=== PATIENT | male | born 1965 | race Caucasian/White ===

== ENCOUNTER 2016-07-26 18:44 | Emergency (ER) | payer OTHER ==
[~2016-07-26] VITALS: Ht 182.9 cm; Wt 95.5 kg
[~2016-07-26 18:44] MED LIST: LACT10SO27 PO; Lactulose PO; MAGN400T23 PO; MELA1TAB11 PO; NADO40TA PO; RIFA550T3 PO; SPIR25TA3 PO; TRAM50TA2 PO
[2016-07-26 18:49] VITALS: BP 150/88; PULSE 94; RESP 18; O2SAT 98
[2016-07-26 21:01] LABS: BASOPHILS % (AUTO) 0.7 % (0-3); EOSINOPHILS % (AUTO) 3.5 % (0-5); MONOCYTES % (AUTO) 14.6 % (4-12); Mean Corpuscular Hemoglobin 28.7 pg (27.0-35.0); NEUTROPHILS % (AUTO) 59.3 % (40-74); Platelet Count 80 bil/L (150-400)
--- NOTE | 2016-07-26 21:23 | ED.REPORT ---
HPI-General Illness Date of Service July 26, 2016 ED Provider: Miguel Schneider DO This is a very pleasant 50-year-old male who presents to have his ammonia levels checked. Evidently he has hepatitis C and cirrhosis. He is supposed be taking lactulose lately's been forgetting to take it. His friends seem to think that his behavior was a little erratic and this usually happens when his ammonia was elevated. As it were he was discharged from [facility] 2 weeks ago. He states that he took the lactulose regularly while in correction however he set a hard time remembering it. He did take it today he has had 3 bowel movements. He has not had a fever. He has not had any new trauma to his brain however he has to status posttraumatic brain injury. Nursing Notes Stated Complaint: CONFUSION Chief Complaint: General Complaint Nursing Notes Reviewed: Yes Allergies: Coded Allergies: acetaminophen (Verified Adverse Reaction, Unknown, 12/24/14) D/T LIVER FAILURE Scheduled ([Lactulose]) 20 GM/30 ML SYRUP 30 GM PO TID Lactulose (Lactulose) 10 Gm/15 Ml Solution 10 GM PO TID Magnesium Oxide (Mag-Oxide) 400 Mg Tablet 400 MG PO DAILY Melatonin/Pyridoxine (Melatonin 3 mg Tablet) 1 Each Tablet 1 EACH PO HS Nadolol (Nadolol) 40 Mg Tablet 40 MG PO DAILY Rifaximin (Xifaxan) 550 Mg Tablet 550 MG PO BID Spironolactone (Spironolactone) 25 Mg Tablet 25 MG PO BID Spironolactone (Spironolactone) 25 Mg Tablet 25 MG PO DAILY Scheduled PRN Tramadol (Tramadol) 50 Mg Tablet 50 MG PO TID PRN PRN For Pain General Time Seen by MD: 21:22 Chief Complaint Other (confusion) Hx Obtained From: Patient Onset Occurred: Onset unknown Context of Onset: Other (hasn't been taking medications) Recent Healthcare: No recent doctor visit, No recent hospitalization Past Medical History Past Medical History Cirrhosis of liver due hepatitis C History of trauma s/p fall off roof with multiple rib and clavicle fractures, pneumothorax with respiratory failure requiring intubation, complicated by MRSA pneumonia History of pancreatitis. History of cocaine and heroin use, in remission. HIV was negative on 10/23/13. MRSA nasal carriage on 09/08/13. 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, Meth Other Social History: Good social support, Homeless Ambulatory Status Independent Review of Systems Full Review of Systems Constitutional: Denies: Chills, Fatigue Eyes: Denies: Blurred left, Blurred right Ears / Nose / Throat: Denies: Ear drainage bilateral, Ear drainage right Respiratory: Denies: Dyspnea on exertion, Non-productive cough, Shortness of breath Cardiovascular: Denies: Chest pain GI: Denies: Abdominal pain Male: Denies Dysuria Musculoskeletal: Denies: Back pain Endocrine: Denies: Cold intolerance Psychiatric: Reports: Change mental status, Confusion, Denies: Suicidal ideation Complete sys rev & neg: except as marked. Physical Exam Vital Signs Vital Signs Date Time Temp Pulse Resp B/P Pulse Ox O2 Delivery O2 Flow Rate FiO2 07/26/16 22:46 36.8 86 16 134/84 97 Room Air 07/26/16 18:49 37.2 94 18 150/88 98 Room Air Initial VS: Reviewed General/Constitutional: Well-developed, Well-nourished Head / Eyes: Atraumatic ENT: Mucous membranes moist Neck: Supple Respiratory: Breath sounds normal Cardiovascular: Regular rate & rhythm Abdomen / GI: Soft, Non-tender Back: No CVA tenderness Lymphatic: No lymphadenopathy Extremities: Vascular intact, Neuro intact General/Constitutional: Awake, Alert, No acute distress Head / Eyes: Atraumatic, Normocephalic, PERRL, EOMI Respiratory / Chest: Atraumatic, Breath sounds NL, Breath sounds = bilat, No respiratory distress Cardiovascular: Heart rate NL, Regular rhythm, Heart sounds NL Abdomen: Atraumatic, Soft, Non-tender Upper Extremities Upper Extremity / MS: Atraumatic, Full range of motion Lower Extremity / Pelvis / MS: Atraumatic, Full range of motion Skin: Atraumatic, Color NL, No rash, Warm, Dry Neurologic: Oriented X3, Speech NL, No motor deficits, No sensory deficits, CN II - XII intact, Cerebellar NL, Memory NL, Gait NL (he is awake alert oriented 4. His speech is rapid and articulate. I find no signs of psychosis or altered mental status.) Psychiatric: Affect NL, Mood NL, Not suicidal pleasant and responsive, does not seem confused Interpretation & Diagnostics Lab Results Interpretation Result Diagram: 07/26/16203907/26/162039 Test 07/26/16 20:40 07/26/16 22:10 White Blood Count 5.8th/mm3 (3.8-10.1) Red Blood Count 4.22mil/mm3 (4.40-5.80) Hemoglobin 12.1g/dL (13.8-17.2) Hematocrit 36.7% (41.0-50.0) Mean Corpuscular Volume 87.0fL (81-100) Mean Corpuscular Hemoglobin 28.7pg (27.0-35.0) Mean Corpuscular Hemoglobin Concent 33.0% (32.0-37.0) Red Cell Distribution Width 18.0% (12.3-15.4) Platelet Count 80bil/L (150-400) Neutrophils (%) (Auto) 59.3% (40-74) Lymphocytes (%) (Auto) 21.7% (14-46) Monocytes (%) (Auto) 14.6% (4-12) Eosinophils (%) (Auto) 3.5% (0-5) Basophils (%) (Auto) 0.7% (0-3) Sodium Level 142mEq/L (134-144) Potassium Level 3.8mEq/L (3.5-5.2) Chloride Level 109mEq/L (97-108) Carbon Dioxide Level 21mmol/L (18-29) Blood Urea Nitrogen 13mg/dL (6-24) Creatinine 0.71mg/dL (0.76-1.27) Estimat Glomerular Filtration Rate 125mL/min (>59) Glucose Level 113mg/dL (60-99) Calcium Level 8.5mg/dL (8.5-10.1) Magnesium Level 2.0mg/dL (1.6-2.6) Total Bilirubin 3.2mg/dL (0.0-1.2) Aspartate Amino Transf (AST/SGOT) 48U/L (0-50) Alanine Aminotransferase (ALT/SGPT) 28U/L (0-44) Alkaline Phosphatase 78U/L (25-150) Total Protein 6.2g/dL (6.4-8.4) Albumin 3.1g/dL (3.4-5.0) Lipase 58U/L (13-60) Ammonia 116ug/dL (18-53) CT Head Interpretation IMPRESSION: No acute intracranial hemorrhage or CT signs of acute territorial infarction. Patchy white matter hypodensities may relate to chronic small vessel ischemic changes but these are advanced for patient age, query long-standing hypertension or diabetes. at 2249 Study: Head CT no contrast Interpretation / Wet Read by: Interpret - Radiologist Re-Eval/Medical Decision Med Decision/Clinical Course I think the Ezekiel looks good. We had a very nice conversation and I find no evidence for altered mentation. I think the lactulose has been taking is helping. His ammonia is elevated. He is planning to take the lactulose 4 times daily. He will follow-up levels on . He is staying with friends and they will help him take his lactulose as well. CT scan of his brain was reassuring. Remainder of laboratory work was reassuring. Time of Eval: 22:04 Re-Evaluation/Progress Note: Gathered more information and further examination. Time of Eval: 01:13 Re-Evaluation/Progress Note: Discussed plan for follow up and discharge. The patient understands and agrees to the plan for discharge. All questions were addressed. Counseled Regarding: Diagnosis, Lab results, Need for follow-up, When/why to return to ED Discharge & Departure Primary Impression: Hepatic encephalopathy Disposition: Home Discharge Condition All VS Reviewed: Yes Condition: Stable Patient Instructions: Liver Disease Diet (DC) Additional Instructions: Your ammonia level was 117. This is most likely why you feel confused. You need to take the Lactulose as instructed. Your brain scan did not show evidence of an acute stroke. Laboratory work was otherwise reassuring. I would like you to call the [facility] clinic first thing in the morning to set up a follow-up. Do not drive or operate machinery until cleared by [facility]. You need to have your ammonia levels re-checked next week. If you come back to the emergency department on before 10pm, we can get a social media developer for you to talk to. Return if any problems or any new or worsening symptoms. Referrals: [facility], [facility] (PCP) Chaz Santiago MD Scribe Attestation Portions of this note were transcribed by Ally Charlton. I, Dr. Schneider personally performed the history, physical exam and medical decision-making; I reviewed and confirmed the accuracy of the information in the transcribed note. Signed by: Tomi Dickerson, 07/26/16 and 2140 copies to: [facility]; Chaz Santiago MD, Todd P DO July 26, 2016 21:22 Sofia Charlton July 26, 2016 21:34
[2016-07-26 22:13] VITALS: BP 176/129; PULSE 68; RESP 14; O2SAT 93
[2016-07-26 22:46] VITALS: BP 134/84; PULSE 86; RESP 16; O2SAT 97
[2016-07-26] MEDS ORDERED: Lactulose 20 Gm/30 mL 30 mL Syrup PO ONE (22:55)
--- NOTE | 2016-07-27 10:25 | DRSVH ---
PROCEDURE: CT BRAIN WITHOUT CONTRAST ([id number]) INDICATIONS: altered mental status TECHNIQUE: Noncontrast 4.5 mm thick angled axial sections acquired from the foramen magnum to the vertex, with c oronal reformats. COMPARISON: [facility], CT, BRAIN W/O CONTRAST, 10/02/2013, 15:10. FINDINGS: Image quality: Excellent. CSF spaces: Basal cisterns are patent. No extra-axial fluid collections. Ventricles are normal in size and shape. Brain: No midline shift. No intracranial masses or hemorrhage. Ornelas-white matter interface is norm al. There patchy areas of hypoattenuation within the periventricular and subcortical white matter. Skull and face: Calvarium and visualized facial bones are intact, without suspicious lesions. Sinuses: Visualized sinuses and mastoids are clear. IMPRESSION: 1. No acute intracranial process. 2. Patchy periventricular and subcortical white matter hypoattenuation. While these could be related to chronic microvascular ischemia, given the patient's stated age, other etiologies such as vasculiti s and demyelinating disease should be considered. Dictated by: Marilu Stanton M.D. on 07/27/2016 at 9:17 Approved by: Marilu Stanton M.D. on 07/27/2016 at 10:22
== END 2016-07-27 01:25 | disposition home or self-care (01) ==
LOC: SED 18:44
DX: K72.90 Hepatic failure, unspecified without coma (principal); K74.60 Unspecified cirrhosis of liver; B19.20 Unspecified viral hepatitis C without hepatic coma; Z87.820 Personal history of traumatic brain injury; Z86.14 Personal history of Methicillin resistant Staphylococcus aureus infection; Z87.891 Personal history of nicotine dependence; Z59.0 Homelessness; Z88.6 Allergy status to analgesic agent

== ENCOUNTER 2016-09-10 11:10 | Emergency (ER) | payer OTHER ==
[~2016-09-10] VITALS: Ht 182.9 cm; Wt 90.9 kg
[2016-09-10 11:12] VITALS: BP 116/72; PULSE 85; RESP 16; O2SAT 97
--- NOTE | 2016-09-10 11:39 | ED.REPORT ---
HPI-General Illness Date of Service Sep 10, 2016 ED Provider: Eliseo Sethi MD Pt is a 50 year old male with a hx of alcoholic and Hep C cirrhosis and traumatic brain injury presenting to the ED after multiple falls complaining of bilateral pain and swelling in his bilateral lower extremities onset 4 days ago. He also complains of LE weakness, double vision, drainage from both ears ( for 1 month), chronic SOB, and a cough (1 month). Denies head trauma, dizziness , headache, numbness, LOC, chest pain, nausea, vomiting, trauma, abdominal pain , bloody stools, incontinence, or any pain. He reports that it feels like his legs give out and he loses his balance so he falls. He has had LE swelling in the past when he was hospitalized after he fell off a roof, but denies any history of leg swelling otherwise. Nursing Notes Stated Complaint: SWOLLEN LEGS Chief Complaint: General Complaint Nursing Notes Reviewed: Yes Allergies: Coded Allergies: acetaminophen (Verified Adverse Reaction, Unknown, 09/10/16) D/T LIVER FAILURE Scheduled Clindamycin (Clindamycin) 300 Mg Capsule 300 MG PO QID Lactulose (Lactulose) 10 Gm/15 Ml Solution 10 GM PO TID Lactulose (Lactulose) 20 Gm/30 Ml Solution 20 GM PO QID Magnesium Oxide (Mag-Oxide) 400 Mg Tablet 400 MG PO DAILY Melatonin/Pyridoxine (Melatonin 3 mg Tablet) 1 Each Tablet 1 EACH PO HS Nadolol (Nadolol) 40 Mg Tablet 40 MG PO DAILY Rifaximin (Xifaxan) 550 Mg Tablet 550 MG PO BID General Time Seen by MD: 11:17 Chief Complaint Other (LE swelling) Hx Obtained From: Patient Arrived By: Walk-in Sudden in Onset?: No Onset Occurred: 4 days ago Symptom Duration: Since onset Severity: Current: No pain currently Severity: Maximum: No pain Recent Healthcare: No recent doctor visit, No recent hospitalization Similar Sx Previous: No Past Medical History Past Medical History 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 History of cocaine and heroin use, in remission. HIV was negative on 10/23/13. MRSA nasal carriage on 09/08/13. Reports: GERD Past Surgical History Left hip and right wrist fracture repairs Smoking History Current Every Day Smoker Social History Alcohol Use: In recovery Drug Use: IV drugs, Meth Other Social History: Good social support, Homeless Ambulatory Status Independent Review of Systems Full Review of Systems Constitutional: Denies: Fever Eyes: Reports: Blurred bilateral (Double vision) Ears / Nose / Throat: Reports: Ear drainage bilateral Respiratory: Reports: Non-productive cough, Shortness of breath Cardiovascular: Denies: Chest pain GI: Denies: Abdominal pain, Bloody/tarry stool, Nausea, Vomiting Male: Denies Incontinence Musculoskeletal: Reports: Extremity pain, Extremity swelling Neurologic: Reports: Weakness, Denies: Change LOC, Dizziness, Headache, Numbness Complete sys rev & neg: except as marked. Physical Exam Vital Signs Vital Signs Date Time Temp Pulse Resp B/P Pulse Ox O2 Delivery O2 Flow Rate FiO2 09/10/16 16:07 80 121/68 09/10/16 11:12 37.3 85 16 116/72 97 Room Air Initial VS: Reviewed General/Constitutional: Well-developed, Well-nourished Head / Eyes: Atraumatic, Normocephalic, PERRL Neck: Supple, Non-tender, Full range of motion Respiratory: Breath sounds normal, Clear to auscultation, No respiratory distress Cardiovascular: Regular rate & rhythm, Heart sounds normal, Intact distal pulses Abdomen / GI: Soft, Non-tender, No guarding, No rebound, No distention Skin: Warm, Dry, No cyanosis Neurologic: Alert, Oriented, Nonfocal Psychiatric: Mood/affect normal, Behavior normal, Normal thought content ENT: Atraumatic, Airway patent, Mucous membranes moist, Tympanic membs NL, Ext aud canal NL Lower Extremity / Pelvis / MS: Atraumatic, Neurologic intact, Vascular intact Pitting edema left worse than right up to calf. Mild cellulitis and erythema left leg. Rectum / Perineum: Atraumatic, No gross blood Guaiac negative. Interpretation & Diagnostics Lab Results Interpretation Result Diagram: 09/10/16 1220 09/10/16 1220 Test 09/10/16 12:20 White Blood Count 3.7th/mm3 (3.8-10.1) Red Blood Count 3.18mil/mm3 (4.40-5.80) Hemoglobin 9.2g/dL (13.8-17.2) Hematocrit 27.5% (41.0-50.0) Mean Corpuscular Volume 86.5fL (81-100) Mean Corpuscular Hemoglobin 28.9pg (27.0-35.0) Mean Corpuscular Hemoglobin Concent 33.5% (32.0-37.0) Red Cell Distribution Width 22.5% (12.3-15.4) Platelet Count 35bil/L (150-400) Neutrophils (%) (Auto) 77% (40-74) Lymphocytes (%) (Auto) 10% (14-46) Monocytes (%) (Auto) 9% (4-12) Eosinophils (%) (Auto) 0% (0-5) Basophils (%) (Auto) 0% (0-3) Band Neutrophils % 4% (1-5) Sodium Level 127mEq/L (134-144) Potassium Level 3.7mEq/L (3.5-5.2) Chloride Level 97mEq/L (97-108) Carbon Dioxide Level 19mmol/L (18-29) Blood Urea Nitrogen 21mg/dL (6-24) Creatinine 0.95mg/dL (0.76-1.27) Estimat Glomerular Filtration Rate 90mL/min (>59) Glucose Level 122mg/dL (60-99) Calcium Level 7.3mg/dL (8.5-10.1) Total Bilirubin 2.2mg/dL (0.0-1.2) Aspartate Amino Transf (AST/SGOT) 72U/L (0-50) Alanine Aminotransferase (ALT/SGPT) 45U/L (0-44) Alkaline Phosphatase 55U/L (25-150) Pro-B-Type Natriuretic Peptide 1480pg/mL (0-121) Total Protein 4.6g/dL (6.4-8.4) Albumin 2.1g/dL (3.4-5.0) Hold Zimmer Top Tube Received (Received) Re-Eval/Medical Decision Med Decision/Clinical Course 50-year-old male history of cirrhosis, hep C presenting with left lower extremity swelling. It is mildly erythematous. Vital signs are stable. His platelets are low but is not actively bleeding. His sodium is mildly low. He does have a left leg cellulitis. Ultrasound shows no DVT. His vital signs are stable. Patient does not want to stay in the hospital. Therefore he will be discharged home with oral antibiotics and return precautions if any new or worsening redness, fevers, nausea vomiting, bleeding, headaches, lethargy, visual changes, seizures, any other new or worsening symptoms. Time of Eval: 11:48 Patient Status: Condition improved Re-Evaluation/Progress Note: Discussed PMHX and performed physical exam. Time of Eval: 14:54 Patient Status: Condition improved Re-Evaluation/Progress Note: Discussed plan to wait for ultrasound. Also discussed plan for discharge if ultrasound is negative. Performed rectal exam. Counseled Regarding: Diagnosis, Lab results, Need for follow-up, When/why to return to ED Discharge & Departure Primary Impression: Cellulitis Site of cellulitis: other site Qualified Code: L03.818 - Cellulitis of other sites Additional Impressions: Hyponatremia Thrombocytopenia Disposition: Home Discharge Condition All VS Reviewed: Yes Condition: Improved Patient Instructions: Cellulitis (ED) Additional Instructions: No dangerous cause was identified for your leg pain. Your ultrasound today did not show signs of a blood clot. Take the antibiotics as prescribed for your cellulitis on your legs. Follow up with your primary care physician in 2 days. Return to the emergency room if you develop any new or worsening symptoms such as increased redness or swelling, nausea, vomiting, headache, weakness, or seizures. Referrals: [facility] (PCP) Tomi Attestation Portions of this note were transcribed by Louise Angeles. I, Dr. Sethi personally performed the history, physical exam and medical decision-making; I reviewed and confirmed the accuracy of the information in the transcribed note. Signed by: Tomi Hodge, 09/10/2016 at 1500. copies to: [facility] Eliseo Sethi MD Sep 10, 2016 11:39 LOUISE ANGELES Sep 10, 2016 11:45
[2016-09-10 12:40] LABS: EOSINOPHILS % (AUTO) 0 % (0-5); Mean Corpuscular Hemoglobin 28.9 pg (27.0-35.0); Mean Corpuscular Volume 86.5 fL (81-100)
[2016-09-10 13:02] LABS: Platelet Count 35 bil/L (150-400)
[2016-09-10 13:03] LABS: BASOPHILS % (AUTO) 0 % (0-3); MONOCYTES % (AUTO) 9 % (4-12); NEUTROPHILS % (AUTO) 77 % (40-74)
[2016-09-10] MEDS ORDERED: CLIN-78 PO (14:16)
[2016-09-10] MEDS ORDERED: LACT10SO60 PO (15:55)
[2016-09-10 16:07] VITALS: BP 121/68; PULSE 80
--- NOTE | 2016-09-10 18:54 | DRSVH ---
PROCEDURE: US VEINOUS LEG DUPLEX UNILATERAL, LEFT INDICATIONS: LLE swelling r/o dvt TECHNIQUE: Real-time imaging, as well as color and pulse Doppler interrogation, were performed of the lower extr emity deep veins from the inguinal ligament to the popliteal fossa. COMPARISON: None. FINDINGS: The deep veins are normally compressible, and free of intraluminal thrombus. Color and pu lse Doppler demonstrate normal phasic intraluminal flow. There is normal augmentation response to di stal compression maneuver. IMPRESSION: 1. No evidence of deep venous thrombosis in the left lower extremity. Dictated by: Melvin Whitmore M.D. on 09/10/2016 at 18:52 Approved by: Melvin Whitmore M.D. on 09/10/2016 at 18:52
== END 2016-09-10 16:05 | disposition home or self-care (01) ==
LOC: SED 11:10
DX: L03.116 Cellulitis of left lower limb (principal); L03.115 Cellulitis of right lower limb; W13.2XXA Fall from, out of or through roof, initial encounter; Y93.89 Activity, other specified; Y92.89 Other specified places as the place of occurrence of the external cause; Y99.8 Other external cause status; D69.6 Thrombocytopenia, unspecified; E87.1 Hypo-osmolality and hyponatremia; K21.9 Gastro-esophageal reflux disease without esophagitis; F17.200 Nicotine dependence, unspecified, uncomplicated; Z59.0 Homelessness; Z88.8 Allergy status to other drugs, medicaments and biological substances

== ENCOUNTER 2016-10-11 00:14 | Inpatient (IN) | payer OTHER ==
[2016-10-11] VITALS (9 sets, daily range): BP systolic 132–158; BP diastolic 81–97; PULSE 61–88; RESP 14–18; O2SAT 97–99
[~2016-10-11] VITALS: Ht 182.9 cm; Wt 83.9 kg
[~2016-10-11 00:14] MED LIST changes: +CLIN-78 PO; +LACT10SO60 PO; -Lactulose PO; -SPIR25TA3 PO; -TRAM50TA2 PO
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
[2016-10-11 00:53] LABS: APPEARANCE,URINE CLEAR (CLEAR,HAZY); COLOR,URINE DARK YELLOW (YELLOW); OCCULT BLOOD,URINE NEGATIVE (NEGATIVE); PH,URINE 6.5 (5.0-8.0); UROBILINOGEN,URINE >8.0 mg/dL (NORMAL)
[2016-10-11 00:54] LABS: ICTOTEST,URINE POSITIVE (Negative)
[2016-10-11 01:10] LABS: BASOPHILS % (AUTO) 0.7 % (0-3); EOSINOPHILS % (AUTO) 5.8 % (0-5); Mean Corpuscular Hemoglobin 28.3 pg (27.0-35.0); Mean Corpuscular Volume 85.3 fL (81-100); NEUTROPHILS % (AUTO) 61.4 % (40-74); Platelet Count 71 bil/L (150-400)
[2016-10-11 01:39] LABS: Magnesium 1.9 mg/dL (1.6-2.6)
[2016-10-11] MEDS ORDERED: Lactulose 20 Gm/30 mL 30 mL Syrup PO ONE (02:45)
[2016-10-11] MEDS ORDERED: Lactated Ringer's 1,000 ML IV SCH (03:09)
[2016-10-11] MEDS ORDERED: Polyethylene Glycol (PEG) 17 Gm Powder PO PRN (03:30)
[2016-10-11] MEDS: Lactulose 20 Gm/30 mL 30 mL Syrup PO SCH ×5 (03:30→20:19)
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
--- NOTE | 2016-10-11 04:57 | NUR ---
ADMIT Patient presents to the floor still quite sedated, slurring his words, incoherent. He is able to follow directions and cooperative. Patient asked several times if he "hurt someone" and apologizes. Patient is too sedated at this time to take anything by mouth. Will wait and perform Nurse swallow eval and provide lactulose if appropriate. Patient is sleeping currently. Bed alarm on for safety.
[2016-10-11 07:00] LABS: INR 1.6 ratio
[2016-10-11] MEDS ORDERED: OMEP20CA11 PO (08:05)
[2016-10-11] MEDS ORDERED: PROP10TA8 PO (08:05)
--- NOTE | 2016-10-11 08:55 | DRSVH ---
PROCEDURE: CT BRAIN WITHOUT CONTRAST ([id number]) INDICATIONS: altered ms TECHNIQUE: Noncontrast 4.5 mm thick angled axial sections acquired from the foramen magnum to the vertex, with c oronal reformats. COMPARISON: [facility], CT, CT BRAIN WO CON, 07/26/2016, 22:40. FINDINGS: Image quality: Good CSF spaces: Basal cisterns are patent. No extra-axial fluid collections. Ventricles are normal in size and shape. Brain: No midline shift. No intracranial masses or hemorrhage. There patchy areas of decreased atte nuation in the periventricular and subcortical white matter as before. Ornelas-white matter interface is normal except for possible subtle change in the left occipital region. This is not definite and may be artifact or just accentuated from a slight difference in angle of sulci and gyri that are volume a veraged. Skull and face: Calvarium and visualized facial bones are intact, without suspicious lesions. Sinuses: Visualized sinuses and mastoids are clear. IMPRESSION: Question of increasing ischemic change ornelas-white matter interface in the left occipital lobe versus artifact or volume averaging of sulci and gyri a slightly different level than the preced ing scan. No evidence for bleed or acute change otherwise. Patchy white matter changes and nonspecific pattern consistent with microvascular ischemic change, re latively prominent for 50-year-old. Small vessel disease would suggest hypertensive disease most comm only or diabetes but couldn't good other vasculitis. Dictated by: Umang Espinoza M.D. on 10/11/2016 at 8:43 this report corresponds to the findings of dashawn cook preliminary NSR report. Approved by: Umang Espinoza M.D. on 10/11/2016 at 8:53
--- NOTE | 2016-10-11 10:52 | DRSVH ---
PROCEDURE: X-RAY CHEST ONE VIEW, PORTABLE ([id number]) INDICATIONS: altered ms TECHNIQUE: One view of the chest was acquired. COMPARISON: [facility], , CHEST 1VW (PORTABLE), 09/08/2013, 16:00. [facility], CR, CHEST 1VW (PORTABLE), 09/25/2013, 17:49. FINDINGS: Surgical changes and devices: None. Lungs and pleura: No pleural effusions or pneumothorax. Lungs are clear, and interstitium is promin ent. Mediastinum: Mediastinal contours appear normal. Heart size is normal. Bones and chest wall: No suspicious bony lesions. Overlying soft tissues appear unremarkable. Unun ited left clavicular shaft fracture present. IMPRESSION: Interstitial prominence similar to prior examination. No definite acute cardiopulmonary process. Dictated by: Natalio Da Silva Richard Interpreted: Umang Espinoza MD on 10/11/2016 at 8:49 Approved by: Umang Espinoza M.D. on 10/11/2016 at 10:50
--- NOTE | 2016-10-11 13:16 | NUR ---
NUTRITION ASSESSMENT: ASSESSMENT: 50 YO Male admitted with altered mental status and hepatic encephalopathy. ST eval is pending. Per RN momo, pt diet was advanced to dysphagia [facility]. No po yet reported. PMHx: Hep C Cirrhosis, pancreatitis, cocaine/heroine use, Traumatic brain injury, ETOH abuse, HTN. MEDS: Reviewed. Lactulose ANTHROPOMETRICS: 81.9 kg. Admit wt: 79.4 kg. LABS: Reviewed. Cr .54, Ca 8.0, Ammonia 151, Alb 2.8. GI: No BM reported yet. DIET: Dysphagia Mechanical. No po reported yet, ST eval pending. ESTIMATED NEEDS: 5030-3244 kcals (30-35 kcal/kg BW), 100-125 g pro (1.2-1.5 g/kg BW) NUTRITION DIAGNOSIS: (1) Increased nutrient needs related to increased demand for nutrients as evidenced by h/o cirrhosis. NUTRITION INTERVENTION: (1) Continue current diet as ordered. MONITOR/EVALUATE: PO intake, diet advancement / tolerance, labs, ST eval, nutrition status. Follow per moderate nutrition risk guidelines.
--- NOTE | 2016-10-11 13:43 | DRSVH ---
PROCEDURE: X-RAY RIGHT HAND, TWO VIEWS ([id number]) INDICATIONS: possible trauma, unable to squeeze TECHNIQUE: 2 views of the hand(s) acquired. COMPARISON: [facility], CR, HAND MIN 3VW (RT), 01/20/2012, 20:14. FINDINGS: Bones: No fractures or dislocations. Healed fracture deformity of the fourth and fifth metacarpal h kareem. Multilevel joint narrowing with periarticular osteophyte formation. Carpal bones are normally aligned. As on all films there is a nonunion of a navicular waist fracture. No suspicious bony lesi ons. Soft tissues: No suspicious soft tissue calcifications. IMPRESSION: No displaced acute fracture seen. 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 There degenerative changes in the radiocarpal joint and interphalangeal joints. If t here is continued pain, followup exam or additional imaging such as MRI or CT could be performed for further assessment. Dictated by: Natalio Da Silva [facility] Interpreted: Umang Espinoza MD on 10/11/2016 at 12:55 Approved by: Umang Espinoza M.D. on 10/11/2016 at 13:41
--- NOTE | 2016-10-11 15:23 | DRSVH ---
PROCEDURE: US ABDOMEN INDICATIONS: cirrhosis abd pain previous ascities TECHNIQUE: Real-time scanning was performed of the abdominal and retroperitoneal organs, with image documentatio n. COMPARISON: US, ABDOMEN SONOGRAM LIMITED, 02/13/2009, 13:13. FINDINGS: Liver length: 12.34 cm Gallbladder Wall Thickness: 2.60 mm Spleen length: 15.93 cm Right kidney length: 10.16 cm Left kidney length: 10.54 cm Aorta(Proximal): 1.79 cm Aorta(Mid): 1.81 cm Aorta(Distal): 1.81 cm RCIA: 8.20 mm LCIA: 9.70 mm Liver: Liver is diffusely coarse and heterogeneous in echotexture. No discrete focal hepatic abnorma lity seen. Gallbladder: Gallstone present within the gallbladder neck measuring roughly 1.3 cm. No gallbladder wall thickening. Biliary ducts: Intrahepatic bile ducts are non-dilated. Extrahepatic bile duct caliber is normal. Normal is 6-7 mm or less in diameter, or 10 mm or less post-cholecystectomy. Pancreas: Visualized portions of the pancreas are sonographically normal. Spleen: Spleen is enlarged in size and homogeneous in echotexture. Kidneys: Kidneys are normal in size and echotexture. No hydronephrosis or nephrolithiasis. No brandy d masses. Aorta: Visualized aorta is normal in caliber at less than 3 cm. Iliacs: Proximal common iliac arteries are normal in caliber at less than 2.5 cm. IVC: Intrahepatic inferior vena cava is patent. Miscellaneous: No free abdominal fluid. IMPRESSION: 1. Coarse and heterogeneous appearance of the hepatic parenchyma in this patient with history of hepa tic cirrhosis. No discrete focal hepatic abnormality seen. 2. Cholelithiasis. 3. Sonographic splenomegaly. Dictated by: Natalio Da Silva RRA Interpreted: Greta Fair MD on 10/11/2016 at 14:34 Approved by: Greta Fair MD, PhD on 10/11/2016 at 15:20
[2016-10-11 15:31] LABS: Bilirubin, Direct 0.5 mg/dL (0.0-0.3)
--- NOTE | 2016-10-11 16:15 | NUR ---
Evaluation completed. Please go to "Notes" then click on "Assessments and Notes" (bottom left corner of screen). Then select appropriate discipline tab on top of screen.
--- NOTE | 2016-10-11 17:18 | NUR ---
Social Work-initial assessment: Data:See initial assessment. Pt ia a 50 y/o female who was admitted on 10/11/16 for AMS per H&P. pt's insurance is [employer] and PCP is Marcial. BONNIE met with pt at bedside, BONNIE role explained. Pt is alert and oriented x3. Pt resides at home with roommates where he remains independent with basic ADLS. Pt rides his bike for transport and does not drive. Pt has no HH or SNF history. Pt has no custodial care insurance or VA benefits. SW discussed DPOA/ advanced directive, pt declines any information. Pt requesting assistance for housing resources. BONNIE recommended pt go to community [facility] to discuss resources. Pt has questions about Assisted living,etc. SW explained that with state insurance [facility] could be looked at, but the state would take the majority of pt's money, pt states he is not interested in that. Housing resources have been provided. Pt plans to return back to his housing situation he has been in. BONNIE provided pt with discharge planning checklist and encouraged pt to call with any questions, BONNIE provided pt with phone number. BONNIE completed CD assessment( see alternative note). SW will continue to follow. Assessment:pt who is independent at baseline. Plan:Pt to likely discharge back home when medically stable. CD assessment completed. SW will continue to follow. ESTHER Cohen Addendum: 10/11/16 at 1723 by PHYLLIS ARIZMENDI SS Amended: Links added.
--- NOTE | 2016-10-11 17:23 | NUR ---
Social Work-chemical dependency assessment: Data:EMR reviewed. Pt is on day 1 of hospitalization for AMS per H&P. Pt reports that he uses meth and heroin regularly. SW discussed pt meeting with CDP from [facility] and pt is agreeable. SW had ISABELLE signed and referral given to Wendy. ISABELLE completed and placed in the front of the chart. SW will continue to follow. Assessment:Pt who is independent at baseline. Plan:Pt to discharge home when medically stable via POV. ISABELLE signed and placed in the chart. JEANINE Nguyen from [facility] to meet with pt. SW will continue to follow. ESTHER Cohen
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
--- NOTE | 2016-10-11 18:17 | NUR ---
Belongings/Drug history Pt has history of IV drug use and per note, urine was positive for methamphetamines. Pt belongings recorded and home meds locked up in closet by security. No risk drugs found. Sharps container removed. Pt appears to be compliant with direction and no seeking behavior during shift. No visitors during shift... Continuing to monitor.
[2016-10-12] VITALS (8 sets, daily range): BP systolic 121–144; BP diastolic 68–83; PULSE 67–84; RESP 16–18; O2SAT 95–99
[2016-10-12] MEDS: Lactulose 20 Gm/30 mL 30 mL Syrup PO SCH ×4 (00:41→11:30)
--- NOTE | 2016-10-12 06:04 | NUR ---
PAIN Pt has had c/o "pain in my back and my liver." Pt had been given prn Ultram, and continued to have c/o pain. Night hospitalist paged, rec'd additional prn pain medication orders. Pt has been able to sleep during the night. Continue to monitor. Call light in reach. Bed alarm on. Intentional rounding.
[2016-10-12 07:24] LABS: EOSINOPHILS % (AUTO) 4.6 % (0-5); MONOCYTES % (AUTO) 8.2 % (4-12); Mean Corpuscular Hemoglobin 28.6 pg (27.0-35.0); Mean Corpuscular Volume 86.8 fL (81-100); NEUTROPHILS % (AUTO) 50.7 % (40-74); Platelet Count 76 bil/L (150-400)
[2016-10-12 07:45] LABS: Magnesium 1.7 mg/dL (1.6-2.6); Phosphorus 4.1 mg/dL (2.5-4.9)
--- NOTE | 2016-10-12 17:03 | PCM.PNMED ---
Subjective Date of Service Oct 12, 2016 Subjective Patient is still somewhat drowsy but is arousable and can converse and does complain of some right upper quadrant pain. He does note that approximately a week ago per his report he used methamphetamine. Exam Vital Signs Vital Sign - Last Date Time Temp Pulse Resp B/P Pulse Ox O2 Delivery O2 Flow Rate FiO2 10/12/16 16:44 84 18 142/74 96 Room Air 10/12/16 12:31 36.7 Intake and Output 10/11/16 10/11/16 10/12/16 Cumulative From/Thru 15:00 23:00 07:00 10/11/16 00:22 - 10/12/16 05:46 Intake Total 926 ml 1340 ml 623 ml 2889 ml Balance 926 ml 1340 ml 623 ml 2889 ml Intake Oral 1340 ml 623 ml 1963 ml IV Total 926 ml 926 ml # Voids 3 1 4 # Bowel Movements 1 1 2 Exam Constitutional middle-aged male who looks older than his stated age Head: Normocephalic atraumatic Chest: Clear to auscultation Cor: Regular rate and rhythm S1-S2 without murmur Abdomen soft there is actually some tenderness in the left mid abdominal area no rebound no guarding bowel sounds are present extremities exam reveals no pedal edema Neuro: He is alert and oriented 3. Does have some asterixis on exam Lab and Diagnostics Laboratory Tests 72 Hours Test 10/11/16 00:28 10/11/16 00:40 10/11/16 00:58 10/11/16 06:22 Sodium Level 142mEq/L (134-144) Potassium Level 3.8mEq/L (3.5-5.2) Chloride Level 110mEq/L (97-108) Carbon Dioxide Level 20mmol/L (18-29) Blood Urea Nitrogen 10mg/dL (6-24) Creatinine 0.54mg/dL (0.76-1.27) Estimat Glomerular Filtration Rate 172mL/min (>59) Glucose Level 94mg/dL (60-99) Calcium Level 8.0mg/dL (8.5-10.1) Magnesium Level 1.9mg/dL (1.6-2.6) Total Bilirubin 3.0mg/dL (0.0-1.2) Aspartate Amino Transf (AST/SGOT) 33U/L (0-50) Alanine Aminotransferase (ALT/SGPT) 18U/L (0-44) Alkaline Phosphatase 83U/L (25-150) Total Protein 5.8g/dL (6.4-8.4) Albumin 2.8g/dL (3.4-5.0) Salicylates Level < 3.0ug/mL (30-250) Acetaminophen Level < 15.0ug/mL Rx (10-25) Alcohols < 10mg/dL (0-10) Urine Color Dark yellow (YELLOW) Urine Appearance Clear (CLEAR,HAZY) Urine pH 6.5 (5.0-8.0) Urine Specific [place] 1.020 (1.003-1.035) Urine Protein Negativemg/dL (NEG,TRACE) Urine Glucose (UA) Negativemg/dL (NEGATIVE) Urine Ketones Negativemg/dL (NEGATIVE) Urine Occult Blood Negative (NEGATIVE) Urine Nitrite Negative (NEGATIVE) Urine Bilirubin Small (NEGATIVE) Urine Ictotest Positive (Negative) Urine Urobilinogen >8.0mg/dL (NORMAL) Urine Leukocyte Esterase Negative (NEGATIVE) Urine RBC 0-2/hpf (0-2) Urine WBC 0-5/hpf (0-5) Urine Epithelial Cells Occasional/hpf (NONE-MOD) Urine Crystals None seen (NONE SEEN) Urine Bacteria Few/hpf (NONE-FEW) Urine Hyaline Casts None/lpf (NONE) Urine Granular Casts None seen (NONE SEEN) Urine Waxy Casts None seen (NONE SEEN) Urine Red Blood Cell Casts None seen (NONE SEEN) Urine White Blood Cell Casts None seen (NONE SEEN) Urine Mucus None seen (None Seen) Urine Trichomonas None seen (NONE SEEN) Urine Yeast None (NONE SEEN) Urinalysis Comment None Urine Culture Reflexed Not indicated White Blood Count 6.0th/mm3 (3.8-10.1) Red Blood Count 4.21mil/mm3 (4.40-5.80) Hemoglobin 11.9g/dL (13.8-17.2) Hematocrit 35.9% (41.0-50.0) Mean Corpuscular Volume 85.3fL (81-100) Mean Corpuscular Hemoglobin 28.3pg (27.0-35.0) Mean Corpuscular Hemoglobin Concent 33.1% (32.0-37.0) Red Cell Distribution Width 20.1% (12.3-15.4) Platelet Count 71bil/L (150-400) Neutrophils (%) (Auto) 61.4% (40-74) Lymphocytes (%) (Auto) 24.8% (14-46) Monocytes (%) (Auto) 7.0% (4-12) Eosinophils (%) (Auto) 5.8% (0-5) Basophils (%) (Auto) 0.7% (0-3) Lactic Acid Level 1.5mmol/L (0.4-2.0) Ammonia 287ug/dL (18-53) 151ug/dL (18-53) Prothrombin Time 17.3sec (8.1-12.5) Prothromb Time International Ratio 1.60ratio Test 10/11/16 14:53 10/12/16 06:10 10/12/16 14:50 Total Bilirubin 3.4mg/dL (0.0-1.2) 2.3mg/dL (0.0-1.2) Direct Bilirubin 0.5mg/dL (0.0-0.3) Aspartate Amino Transf (AST/SGOT) 38U/L (0-50) 36U/L (0-50) Alanine Aminotransferase (ALT/SGPT) 18U/L (0-44) 17U/L (0-44) Alkaline Phosphatase 88U/L (25-150) 89U/L (25-150) Total Protein 5.9g/dL (6.4-8.4) 5.4g/dL (6.4-8.4) Albumin 2.8g/dL (3.4-5.0) 2.7g/dL (3.4-5.0) White Blood Count 4.1th/mm3 (3.8-10.1) Red Blood Count 3.78mil/mm3 (4.40-5.80) Hemoglobin 10.8g/dL (13.8-17.2) Hematocrit 32.8% (41.0-50.0) Mean Corpuscular Volume 86.8fL (81-100) Mean Corpuscular Hemoglobin 28.6pg (27.0-35.0) Mean Corpuscular Hemoglobin Concent 32.9% (32.0-37.0) Red Cell Distribution Width 20.0% (12.3-15.4) Platelet Count 76bil/L (150-400) Neutrophils (%) (Auto) 50.7% (40-74) Lymphocytes (%) (Auto) 35.3% (14-46) Monocytes (%) (Auto) 8.2% (4-12) Eosinophils (%) (Auto) 4.6% (0-5) Basophils (%) (Auto) 1.0% (0-3) Sodium Level 141mEq/L (134-144) Potassium Level 3.6mEq/L (3.5-5.2) Chloride Level 109mEq/L (97-108) Carbon Dioxide Level 20mmol/L (18-29) Blood Urea Nitrogen 15mg/dL (6-24) Creatinine 0.63mg/dL (0.76-1.27) Estimat Glomerular Filtration Rate 144mL/min (>59) Glucose Level 95mg/dL (60-99) Calcium Level 7.8mg/dL (8.5-10.1) Phosphorus Level 4.1mg/dL (2.5-4.9) Magnesium Level 1.7mg/dL (1.6-2.6) Ammonia 210ug/dL (18-53) Result Diagram: 10/12/1610 10/12/16 0610 X-Rays, CTs and MRIs Conclusion: 1. No acute intracranial hemorrhage or mass effect 2. Patchy white matter lucency may relate to chornic small vessel ischemic changes although this is advanced for patient age, query long-standing hypertension or diabetes. Differential includes vasculitis, migraine disorder, demyelinating disease, among other etiologies. Signed by Dr. Juan Antonio Choe 10/11/16 0:48 Study: Head CT no contrast Interpretation / Wet Read by: Interpret - Radiologist Assessment & Plan Ezekiel Muniz is a 50-year-old gentleman with a past medical history of hypertension, alcoholism and hepatitis C cirrhosis, and traumatic brain injury who presents with altered mental status. Hepatic encephalopathy, Present on Admission, Active Differential includes substance abuse with bedside urine tox positive for methamphetamine, marijuana and benzo (recieved versed in the field). Patient has history of hepatic encephalopathy with prior visits. On Lactulose and Rafaximin per med rec. No evidence of infectious etiology at this time, UA normal. No significant metabolic derangements, no evidence of GI bleed. . - We will be more aggressive with lactulose and do 20 g every 2 hours when necessary achieving three stools per day. - Rifaximin 550 mg BID - IV Fluids 100 mL/hr Cirrhosis, secondary to hepatitis C infection, chronic - Will check PT/INR Chronic thrombocytopenia, Present on admission, active - Secondary to cirrhosis. Will hold subq heparin and use SCD's. Chronic Normocytic Anemia, presumed stable - Monitor CBC Patient Status: Patient is changed to inpatient status as is requiring greater than two midnights to be medically stable for discharge. Code Status: Full Code VTE Mechanical Devices: Intermittant Pneumatic CD Resuscitation Status: CPR: Attempt Resuscitation Time spent 30 minutes Steph Meléndez MD Oct 12, 2016 17:03
[2016-10-12] MEDS: Lactulose 20 Gm/30 mL 30 mL Syrup PO PRN (17:38)
[2016-10-13] VITALS (7 sets, daily range): BP systolic 115–131; BP diastolic 72–85; PULSE 56–70; RESP 16; O2SAT 94–99
--- NOTE | 2016-10-13 05:03 | NUR ---
PAIN Pt continues to have "pain in my liver." Pt rates pain "6-7". Pt has been given prn oxycodone. Pt states "ultram doesn't work." Pt has been able to sleep during shift. Continue to monitor. Call light in reach. Bed alarm on. Intentional rounding.
[2016-10-13 06:09] LABS: BASOPHILS % (AUTO) 1.3 % (0-3); EOSINOPHILS % (AUTO) 7.2 % (0-5); MONOCYTES % (AUTO) 10.8 % (4-12); Mean Corpuscular Volume 86.2 fL (81-100); NEUTROPHILS % (AUTO) 46.1 % (40-74); Platelet Count 78 bil/L (150-400)
[2016-10-13] MEDS: Lactulose 20 Gm/30 mL 30 mL Syrup PO SCH ×4 (11:18→21:31)
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
--- NOTE | 2016-10-13 13:16 | PCM.PNMED ---
Subjective Date of Service Oct 13, 2016 Subjective Patient slightly drowsy this morning and does complain of some diffuse abdominal pain mild. Denies any nausea or vomiting. Exam Vital Signs Vital Sign - Last Date Time Temp Pulse Resp B/P Pulse Ox O2 Delivery O2 Flow Rate FiO2 10/13/16 09:58 36.6 56 16 117/74 94 Room Air Intake and Output 10/12/16 10/12/16 10/13/16 Cumulative From/Thru 15:00 23:00 07:00 10/11/16 00:22 - 10/12/16 18:03 Intake Total 939 ml 3828 ml Balance 939 ml 3828 ml Intake Oral 939 ml 2902 ml IV Total 926 ml # Voids 3 7 # Bowel Movements 1 3 Exam Constitutional middle-aged drowsy male Head: Normocephalic atraumatic Chest: Clear to auscultation Cor: Regular rate and rhythm S1-S2 Abdomen: Soft mild diffuse tenderness no rebound no guarding bowel sounds are present Extremities: No pedal edema Neuro: Drowsy but is oriented 3 and answers questions appropriately, motor strength is intact bilaterally has some asterixis on exam Lab and Diagnostics Laboratory Tests 72 Hours Test 10/11/16 00:28 10/11/16 00:40 10/11/16 00:58 10/11/16 06:22 Sodium Level 142mEq/L (134-144) Potassium Level 3.8mEq/L (3.5-5.2) Chloride Level 110mEq/L (97-108) Carbon Dioxide Level 20mmol/L (18-29) Blood Urea Nitrogen 10mg/dL (6-24) Creatinine 0.54mg/dL (0.76-1.27) Estimat Glomerular Filtration Rate 172mL/min (>59) Glucose Level 94mg/dL (60-99) Calcium Level 8.0mg/dL (8.5-10.1) Magnesium Level 1.9mg/dL (1.6-2.6) Total Bilirubin 3.0mg/dL (0.0-1.2) Aspartate Amino Transf (AST/SGOT) 33U/L (0-50) Alanine Aminotransferase (ALT/SGPT) 18U/L (0-44) Alkaline Phosphatase 83U/L (25-150) Total Protein 5.8g/dL (6.4-8.4) Albumin 2.8g/dL (3.4-5.0) Salicylates Level < 3.0ug/mL (30-250) Acetaminophen Level < 15.0ug/mL Rx (10-25) Alcohols < 10mg/dL (0-10) Urine Color Dark yellow (YELLOW) Urine Appearance Clear (CLEAR,HAZY) Urine pH 6.5 (5.0-8.0) Urine Specific [place] 1.020 (1.003-1.035) Urine Protein Negativemg/dL (NEG,TRACE) Urine Glucose (UA) Negativemg/dL (NEGATIVE) Urine Ketones Negativemg/dL (NEGATIVE) Urine Occult Blood Negative (NEGATIVE) Urine Nitrite Negative (NEGATIVE) Urine Bilirubin Small (NEGATIVE) Urine Ictotest Positive (Negative) Urine Urobilinogen >8.0mg/dL (NORMAL) Urine Leukocyte Esterase Negative (NEGATIVE) Urine RBC 0-2/hpf (0-2) Urine WBC 0-5/hpf (0-5) Urine Epithelial Cells Occasional/hpf (NONE-MOD) Urine Crystals None seen (NONE SEEN) Urine Bacteria Few/hpf (NONE-FEW) Urine Hyaline Casts None/lpf (NONE) Urine Granular Casts None seen (NONE SEEN) Urine Waxy Casts None seen (NONE SEEN) Urine Red Blood Cell Casts None seen (NONE SEEN) Urine White Blood Cell Casts None seen (NONE SEEN) Urine Mucus None seen (None Seen) Urine Trichomonas None seen (NONE SEEN) Urine Yeast None (NONE SEEN) Urinalysis Comment None Urine Culture Reflexed Not indicated White Blood Count 6.0th/mm3 (3.8-10.1) Red Blood Count 4.21mil/mm3 (4.40-5.80) Hemoglobin 11.9g/dL (13.8-17.2) Hematocrit 35.9% (41.0-50.0) Mean Corpuscular Volume 85.3fL (81-100) Mean Corpuscular Hemoglobin 28.3pg (27.0-35.0) Mean Corpuscular Hemoglobin Concent 33.1% (32.0-37.0) Red Cell Distribution Width 20.1% (12.3-15.4) Platelet Count 71bil/L (150-400) Neutrophils (%) (Auto) 61.4% (40-74) Lymphocytes (%) (Auto) 24.8% (14-46) Monocytes (%) (Auto) 7.0% (4-12) Eosinophils (%) (Auto) 5.8% (0-5) Basophils (%) (Auto) 0.7% (0-3) Lactic Acid Level 1.5mmol/L (0.4-2.0) Ammonia 287ug/dL (18-53) 151ug/dL (18-53) Prothrombin Time 17.3sec (8.1-12.5) Prothromb Time International Ratio 1.60ratio Test 10/11/16 14:53 10/12/16 06:10 10/12/16 14:50 10/13/16 05:40 Total Bilirubin 3.4mg/dL (0.0-1.2) 2.3mg/dL (0.0-1.2) 2.1mg/dL (0.0-1.2) Direct Bilirubin 0.5mg/dL (0.0-0.3) Aspartate Amino Transf (AST/SGOT) 38U/L (0-50) 36U/L (0-50) 33U/L (0-50) Alanine Aminotransferase (ALT/SGPT) 18U/L (0-44) 17U/L (0-44) 16U/L (0-44) Alkaline Phosphatase 88U/L (25-150) 89U/L (25-150) 83U/L (25-150) Total Protein 5.9g/dL (6.4-8.4) 5.4g/dL (6.4-8.4) 5.3g/dL (6.4-8.4) Albumin 2.8g/dL (3.4-5.0) 2.7g/dL (3.4-5.0) 2.5g/dL (3.4-5.0) White Blood Count 4.1th/mm3 (3.8-10.1) 4.5th/mm3 (3.8-10.1) Red Blood Count 3.78mil/mm3 (4.40-5.80) 3.83mil/mm3 (4.40-5.80) Hemoglobin 10.8g/dL (13.8-17.2) 11.1g/dL (13.8-17.2) Hematocrit 32.8% (41.0-50.0) 33.0% (41.0-50.0) Mean Corpuscular Volume 86.8fL (81-100) 86.2fL (81-100) Mean Corpuscular Hemoglobin 28.6pg (27.0-35.0) 29.0pg (27.0-35.0) Mean Corpuscular Hemoglobin Concent 32.9% (32.0-37.0) 33.6% (32.0-37.0) Red Cell Distribution Width 20.0% (12.3-15.4) 19.4% (12.3-15.4) Platelet Count 76bil/L (150-400) 78bil/L (150-400) Neutrophils (%) (Auto) 50.7% (40-74) 46.1% (40-74) Lymphocytes (%) (Auto) 35.3% (14-46) 34.4% (14-46) Monocytes (%) (Auto) 8.2% (4-12) 10.8% (4-12) Eosinophils (%) (Auto) 4.6% (0-5) 7.2% (0-5) Basophils (%) (Auto) 1.0% (0-3) 1.3% (0-3) Sodium Level 141mEq/L (134-144) 141mEq/L (134-144) Potassium Level 3.6mEq/L (3.5-5.2) 4.1mEq/L (3.5-5.2) Chloride Level 109mEq/L (97-108) 110mEq/L (97-108) Carbon Dioxide Level 20mmol/L (18-29) 22mmol/L (18-29) Blood Urea Nitrogen 15mg/dL (6-24) 14mg/dL (6-24) Creatinine 0.63mg/dL (0.76-1.27) 0.71mg/dL (0.76-1.27) Estimat Glomerular Filtration Rate 144mL/min (>59) 125mL/min (>59) Glucose Level 95mg/dL (60-99) 99mg/dL (60-99) Calcium Level 7.8mg/dL (8.5-10.1) 7.9mg/dL (8.5-10.1) Phosphorus Level 4.1mg/dL (2.5-4.9) Magnesium Level 1.7mg/dL (1.6-2.6) Ammonia 210ug/dL (18-53) 305ug/dL (18-53) Result Diagram: 10/13/16 0540 10/13/16 0540 X-Rays, CTs and MRIs Conclusion: 1. No acute intracranial hemorrhage or mass effect 2. Patchy white matter lucency may relate to chornic small vessel ischemic changes although this is advanced for patient age, query long-standing hypertension or diabetes. Differential includes vasculitis, migraine disorder, demyelinating disease, among other etiologies. Signed by Dr. Juan Antonio Choe 10/11/16 0:48 Study: Head CT no contrast Interpretation / Wet Read by: Interpret - Radiologist Assessment & Plan Ezekiel Muniz is a 50-year-old gentleman with a past medical history of hypertension, alcoholism and hepatitis C cirrhosis, and traumatic brain injury who presents with altered mental status. Hepatic encephalopathy, Present on Admission, Active Differential includes substance abuse with bedside urine tox positive for methamphetamine, marijuana and benzo (recieved versed in the field). Patient has history of hepatic encephalopathy with prior visits. On Lactulose and Rafaximin per med rec. No evidence of infectious etiology at this time, UA normal. No significant metabolic derangements, no evidence of GI bleed. . - We will be more aggressive with lactulose and do 20 g every 2 hours when necessary achieving three stools per day. With this change yesterday he has not been getting regular lactulose so we will go ahead and change order to every 4 hours and every 2 hours when necessary. -Ammonia level was elevated at 300 today and I think it was because it was written as when necessary he was getting less lactulose with out having adequate bowel movements - Rifaximin 550 mg BID - IV Fluids 100 mL/hr Diffuse abdominal pain, mild, not present on admission, acute We will go ahead and check abdominal x-ray series. Cirrhosis, secondary to hepatitis C infection, chronic - Will check PT/INR Chronic thrombocytopenia, Present on admission, active - Secondary to cirrhosis. Will hold subq heparin and use SCD's. Chronic Normocytic Anemia, presumed stable - Monitor CBC Patient Status: Patient is changed to inpatient status as is requiring greater than two midnights to be medically stable for discharge. Code Status: Full Code VTE Mechanical Devices: Intermittant Pneumatic CD Resuscitation Status: CPR: Attempt Resuscitation Time spent 30 minutes Steph Meléndez MD Oct 13, 2016 13:16
[2016-10-13] MEDS ORDERED: Sodium Biphos-Phos 133 mL Enema RECTAL ONE (16:25)
--- NOTE | 2016-10-13 18:46 | NUR ---
Bowel Movements: Waylon had one loose Medium to large BM today. He has recieved all of his doses of lactulose and did not want the Fleets enema that the MD ordered for his . he feels like he does not need the enema. More lactulose was given to him after he had the BM to keep the stools coming. Patient has had a good appetite. he has been compliant with care. His Amonia level this morning was 305.
[2016-10-14] VITALS (7 sets, daily range): BP systolic 116–158; BP diastolic 72–79; PULSE 57–76; RESP 16–18; O2SAT 96–98
[2016-10-14] MEDS: Alum-Mag Hydrox-Simeth 30 mL Suspension PO PRN (00:56)
--- NOTE | 2016-10-14 01:26 | NUR ---
Chest pain Pt c/o chest pain at 0050 "6-7/10 for 1hr",pt unable to describe the chest pain in detail,denies SOB, n/v,or diaphoresis,or pale. VSS, BP 116/79 HR76, SPO2 96% on RA. Stat EKG(report in chart):"SR 60 Abnormal R-wave progression, early transition" Oxycodone given,Pt refuses Maalox and Tramadol. Dr. Dangelo paged including EKG report at 0117, no order given at this time. Charge nurse Clara Carson informed. Continue monitoring.
[2016-10-14] MEDS: Lactulose 20 Gm/30 mL 30 mL Syrup PO SCH ×6 (01:42→20:27)
[2016-10-14] MEDS: Lactulose 20 Gm/30 mL 30 mL Syrup PO PRN (05:22)
--- NOTE | 2016-10-14 09:26 | PCM.PNMED ---
Subjective Date of Service Oct 14, 2016 Subjective Patient's sleeping difficult to wake up but eventually do and answers questions appropriately Exam Vital Signs Vital Sign - Last Date Time Temp Pulse Resp B/P Pulse Ox O2 Delivery O2 Flow Rate FiO2 10/14/16 08:11 36.6 57 17 125/79 96 Room Air Intake and Output 10/13/16 10/13/16 10/14/16 Cumulative From/Thru 15:00 23:00 07:00 10/11/16 00:22 - 10/14/16 06:18 Intake Total 200 ml 792 ml 200 ml 5020 ml Output Total 1 ml 300 ml 301 ml Balance 200 ml 791 ml -100 ml 4719 ml Intake Oral 200 ml 792 ml 200 ml 4094 ml IV Total 926 ml Output Urine Total 300 ml 300 ml Stool Total 1 ml 1 ml # Voids 2 3 12 # Bowel Movements 0 3 Exam Constitutional middle-aged male who does complain of a little bit of right upper quadrant pain that goes Head: Normocephalic atraumatic Chest: Clear to auscultation Cor: Regular rate and rhythm S1-S2 Abdomen: Soft mild diffuse tenderness no rebound no guarding Extremities: No pedal edema Neuro: Alert and oriented 3, motor strength is intact bilaterally Lab and Diagnostics Laboratory Tests 72 Hours Test 10/11/16 14:53 10/12/16 06:10 10/12/16 14:50 10/13/16 05:40 Total Bilirubin 3.4mg/dL (0.0-1.2) 2.3mg/dL (0.0-1.2) 2.1mg/dL (0.0-1.2) Direct Bilirubin 0.5mg/dL (0.0-0.3) Aspartate Amino Transf (AST/SGOT) 38U/L (0-50) 36U/L (0-50) 33U/L (0-50) Alanine Aminotransferase (ALT/SGPT) 18U/L (0-44) 17U/L (0-44) 16U/L (0-44) Alkaline Phosphatase 88U/L (25-150) 89U/L (25-150) 83U/L (25-150) Total Protein 5.9g/dL (6.4-8.4) 5.4g/dL (6.4-8.4) 5.3g/dL (6.4-8.4) Albumin 2.8g/dL (3.4-5.0) 2.7g/dL (3.4-5.0) 2.5g/dL (3.4-5.0) White Blood Count 4.1th/mm3 (3.8-10.1) 4.5th/mm3 (3.8-10.1) Red Blood Count 3.78mil/mm3 (4.40-5.80) 3.83mil/mm3 (4.40-5.80) Hemoglobin 10.8g/dL (13.8-17.2) 11.1g/dL (13.8-17.2) Hematocrit 32.8% (41.0-50.0) 33.0% (41.0-50.0) Mean Corpuscular Volume 86.8fL (81-100) 86.2fL (81-100) Mean Corpuscular Hemoglobin 28.6pg (27.0-35.0) 29.0pg (27.0-35.0) Mean Corpuscular Hemoglobin Concent 32.9% (32.0-37.0) 33.6% (32.0-37.0) Red Cell Distribution Width 20.0% (12.3-15.4) 19.4% (12.3-15.4) Platelet Count 76bil/L (150-400) 78bil/L (150-400) Neutrophils (%) (Auto) 50.7% (40-74) 46.1% (40-74) Lymphocytes (%) (Auto) 35.3% (14-46) 34.4% (14-46) Monocytes (%) (Auto) 8.2% (4-12) 10.8% (4-12) Eosinophils (%) (Auto) 4.6% (0-5) 7.2% (0-5) Basophils (%) (Auto) 1.0% (0-3) 1.3% (0-3) Sodium Level 141mEq/L (134-144) 141mEq/L (134-144) Potassium Level 3.6mEq/L (3.5-5.2) 4.1mEq/L (3.5-5.2) Chloride Level 109mEq/L (97-108) 110mEq/L (97-108) Carbon Dioxide Level 20mmol/L (18-29) 22mmol/L (18-29) Blood Urea Nitrogen 15mg/dL (6-24) 14mg/dL (6-24) Creatinine 0.63mg/dL (0.76-1.27) 0.71mg/dL (0.76-1.27) Estimat Glomerular Filtration Rate 144mL/min (>59) 125mL/min (>59) Glucose Level 95mg/dL (60-99) 99mg/dL (60-99) Calcium Level 7.8mg/dL (8.5-10.1) 7.9mg/dL (8.5-10.1) Phosphorus Level 4.1mg/dL (2.5-4.9) Magnesium Level 1.7mg/dL (1.6-2.6) Ammonia 210ug/dL (18-53) 305ug/dL (18-53) Test 10/14/16 05:45 Sodium Level 139mEq/L (134-144) Potassium Level 4.3mEq/L (3.5-5.2) Chloride Level 107mEq/L (97-108) Carbon Dioxide Level 21mmol/L (18-29) Blood Urea Nitrogen 13mg/dL (6-24) Creatinine 0.67mg/dL (0.76-1.27) Estimat Glomerular Filtration Rate 134mL/min (>59) Glucose Level 100mg/dL (60-99) Calcium Level 7.9mg/dL (8.5-10.1) Total Bilirubin 2.5mg/dL (0.0-1.2) Aspartate Amino Transf (AST/SGOT) 38U/L (0-50) Alanine Aminotransferase (ALT/SGPT) 17U/L (0-44) Alkaline Phosphatase 81U/L (25-150) Ammonia 238ug/dL (18-53) Total Protein 5.4g/dL (6.4-8.4) Albumin 2.5g/dL (3.4-5.0) Result Diagram: 10/13/16 0540 10/14/16 0545 X-Rays, CTs and MRIs Conclusion: 1. No acute intracranial hemorrhage or mass effect 2. Patchy white matter lucency may relate to chornic small vessel ischemic changes although this is advanced for patient age, query long-standing hypertension or diabetes. Differential includes vasculitis, migraine disorder, demyelinating disease, among other etiologies. Signed by Dr. Juan Antonio Choe 10/11/16 0:48 Study: Head CT no contrast Interpretation / Wet Read by: Interpret - Radiologist Assessment & Plan Ezekiel Muniz is a 50-year-old gentleman with a past medical history of hypertension, alcoholism and hepatitis C cirrhosis, and traumatic brain injury who presents with altered mental status. Hepatic encephalopathy, Present on Admission, Active Differential includes substance abuse with bedside urine tox positive for methamphetamine, marijuana and benzo (recieved versed in the field). Patient has history of hepatic encephalopathy with prior visits. On Lactulose and Rafaximin per med rec. No evidence of infectious etiology at this time, UA normal. No significant metabolic derangements, no evidence of GI bleed. . - We will be more aggressive with lactulose and do 20 g every 2 hours when necessary achieving three stools per day. With this change yesterday he has not been getting regular lactulose so we will go ahead and change order to every 4 hours and every 2 hours when necessary. -Ammonia level was elevated at 300 today and I think it was because it was written as when necessary he was getting less lactulose with out having adequate bowel movements - Rifaximin 550 mg BID - IV Fluids 100 mL/hr Diffuse abdominal pain, mild, not present on admission, acute We will go ahead and check abdominal x-ray series which were done yesterday and revealed some gas within the colon otherwise no acute abnormalities Cirrhosis, secondary to hepatitis C infection, chronic - Will check PT/INR Chronic thrombocytopenia, Present on admission, active - Secondary to cirrhosis. Will hold subq heparin and use SCD's. Chronic Normocytic Anemia, presumed stable - Monitor CBC Patient Status: Patient is changed to inpatient status as is requiring greater than two midnights to be medically stable for discharge. Code Status: Full Code VTE Mechanical Devices: Intermittant Pneumatic CD Resuscitation Status: CPR: Attempt Resuscitation Time spent 30 minutes Steph Meléndez MD Oct 14, 2016 09:26
--- NOTE | 2016-10-14 14:29 | NUR ---
NUTRITION FOLLOW UP: ASSESSMENT: 50 YO Male admitted with altered mental status and hepatic encephalopathy. ST reveals pt WFL, diet changed to general. Pt continues with abdominal pain. PMHx: Hep C Cirrhosis, pancreatitis, cocaine/heroine use, Traumatic brain injury, ETOH abuse, HTN. MEDS: Reviewed. Lactulose ANTHROPOMETRICS: 84.2 kg. Admit wt: 79.4 kg. LABS: Reviewed. Glu 100, Alb 2.5, Ca 7.9, Ammonia 238 GI: 2 BM 8/2 DIET: General. PO 25-100% ESTIMATED NEEDS: 2960-1791 kcals (30-35 kcal/kg BW), 100-125 g pro (1.2-1.5 g/kg BW) NUTRITION DIAGNOSIS: (1) Increased nutrient needs related to increased demand for nutrients as evidenced by h/o cirrhosis---PERSISTS. Pt maintaining good po intake. NUTRITION INTERVENTION: (1) Continue current diet as ordered. MONITOR/EVALUATE: PO intake, diet advancement / tolerance, labs, nutrition status. Follow per moderate nutrition risk guidelines.
--- NOTE | 2016-10-14 16:49 | NUR ---
Social Work: Continued d/c planning Data: pt is on day 3 of hospitalization. EMR reviewed, pt discussed in multidisciplinary rounds. MD states pt likely to d/c in 1-2 days. No d/c planning needs identified at this time. CIVIL ATTORNEY will continue to follow if needs arise. Assessment: Pt who is independent at baseline, currently capable of self care. Plan: Pt will d/c home via POV when medically stable. No d/c planning needs identified at this time. CIVIL ATTORNEY will continue to follow if needs arise. ESTHER Ledesma
--- NOTE | 2016-10-14 18:08 | NUR ---
Bowel movements: Patient received lactulose all of his q 4 hour doses today. He has had 4 loose stools . His ammonia level was 238 this morning , down from 305 yesterday. Patient also is more "Clear Headed " this evening and able to carry on a good conversation.
[2016-10-15] MEDS: Lactulose 20 Gm/30 mL 30 mL Syrup PO SCH ×6 (00:35→22:30)
[2016-10-15 01:00] VITALS: BP 125/73; PULSE 65; RESP 18; O2SAT 96
--- NOTE | 2016-10-15 02:47 | NUR ---
activity Pt alert and oriented x3, some confusion at times, speech slurred, pt is cooperative and pleasant. No complaints of nausea. Pt refused 2030 lactulose, complained of too many bowel movements.
[2016-10-15 05:57] VITALS: PULSE 69
[2016-10-15 06:29] VITALS: BP 106/66; PULSE 61; RESP 18; O2SAT 96
[2016-10-15 09:43] VITALS: BP 118/66; PULSE 77; RESP 18; O2SAT 97
[2016-10-15 11:27] VITALS: PULSE 65
[2016-10-15] MEDS: Lactulose 20 Gm/30 mL 30 mL Syrup PO PRN (13:53)
--- NOTE | 2016-10-15 15:52 | PCM.PNMED ---
Subjective Date of Service Oct 15, 2016 Subjective Patient still complaining of some abdominal pain now more right upper quadrant but mild. I did awaken him from sleeping. Denies any nausea or vomiting. Exam Vital Signs Vital Sign - Last Date Time Temp Pulse Resp B/P Pulse Ox O2 Delivery O2 Flow Rate FiO2 10/15/16 11:27 65 10/15/16 09:43 36.7 18 118/66 97 Room Air Intake and Output 10/14/16 10/14/16 10/15/16 Cumulative From/Thru 15:00 23:00 07:00 10/11/16 00:22 - 10/15/16 05:23 Intake Total 1136 ml 6156 ml Output Total 4 ml 305 ml Balance 1132 ml 5851 ml Intake Oral 1136 ml 5230 ml IV Total 926 ml Output Urine Total 300 ml Stool Total 4 ml 5 ml # Voids 3 15 # Bowel Movements 3 Exam Constitutional: Middle-aged male in no acute distress Head: Normocephalic atraumatic Chest: Clear to auscultation Cor: Regular rate and rhythm S1-S2 without murmur Abdomen: Soft mild tenderness in right upper quadrant no rebound or guarding present Extremities: No pedal edema Neuro: Alert and oriented 3, motor strength is intact bilaterally Lab and Diagnostics Laboratory Tests 72 Hours Test 10/13/16 05:40 10/14/16 05:45 10/15/16 06:07 White Blood Count 4.5th/mm3 (3.8-10.1) Red Blood Count 3.83mil/mm3 (4.40-5.80) Hemoglobin 11.1g/dL (13.8-17.2) Hematocrit 33.0% (41.0-50.0) Mean Corpuscular Volume 86.2fL (81-100) Mean Corpuscular Hemoglobin 29.0pg (27.0-35.0) Mean Corpuscular Hemoglobin Concent 33.6% (32.0-37.0) Red Cell Distribution Width 19.4% (12.3-15.4) Platelet Count 78bil/L (150-400) Neutrophils (%) (Auto) 46.1% (40-74) Lymphocytes (%) (Auto) 34.4% (14-46) Monocytes (%) (Auto) 10.8% (4-12) Eosinophils (%) (Auto) 7.2% (0-5) Basophils (%) (Auto) 1.3% (0-3) Sodium Level 141mEq/L (134-144) 139mEq/L (134-144) 139mEq/L (134-144) Potassium Level 4.1mEq/L (3.5-5.2) 4.3mEq/L (3.5-5.2) 4.2mEq/L (3.5-5.2) Chloride Level 110mEq/L (97-108) 107mEq/L (97-108) 106mEq/L (97-108) Carbon Dioxide Level 22mmol/L (18-29) 21mmol/L (18-29) 22mmol/L (18-29) Blood Urea Nitrogen 14mg/dL (6-24) 13mg/dL (6-24) 11mg/dL (6-24) Creatinine 0.71mg/dL (0.76-1.27) 0.67mg/dL (0.76-1.27) 0.62mg/dL (0.76-1.27) Estimat Glomerular Filtration Rate 125mL/min (>59) 134mL/min (>59) 147mL/min (>59) Glucose Level 99mg/dL (60-99) 100mg/dL (60-99) 102mg/dL (60-99) Calcium Level 7.9mg/dL (8.5-10.1) 7.9mg/dL (8.5-10.1) 7.6mg/dL (8.5-10.1) Total Bilirubin 2.1mg/dL (0.0-1.2) 2.5mg/dL (0.0-1.2) 2.2mg/dL (0.0-1.2) Aspartate Amino Transf (AST/SGOT) 33U/L (0-50) 38U/L (0-50) 40U/L (0-50) Alanine Aminotransferase (ALT/SGPT) 16U/L (0-44) 17U/L (0-44) 18U/L (0-44) Alkaline Phosphatase 83U/L (25-150) 81U/L (25-150) 81U/L (25-150) Ammonia 305ug/dL (18-53) 238ug/dL (18-53) 228ug/dL (18-53) Total Protein 5.3g/dL (6.4-8.4) 5.4g/dL (6.4-8.4) 5.4g/dL (6.4-8.4) Albumin 2.5g/dL (3.4-5.0) 2.5g/dL (3.4-5.0) 2.5g/dL (3.4-5.0) Result Diagram: 10/13/16 0540 10/15/16 0607 X-Rays, CTs and MRIs Conclusion: 1. No acute intracranial hemorrhage or mass effect 2. Patchy white matter lucency may relate to chornic small vessel ischemic changes although this is advanced for patient age, query long-standing hypertension or diabetes. Differential includes vasculitis, migraine disorder, demyelinating disease, among other etiologies. Signed by Dr. Juan Antonio Choe 10/11/16 0:48 Study: Head CT no contrast Interpretation / Wet Read by: Interpret - Radiologist Assessment & Plan Ezekiel Muniz is a 50-year-old gentleman with a past medical history of hypertension, alcoholism and hepatitis C cirrhosis, and traumatic brain injury who presents with altered mental status. Hepatic encephalopathy, Present on Admission, Active Differential includes substance abuse with bedside urine tox positive for methamphetamine, marijuana and benzo (recieved versed in the field). Patient has history of hepatic encephalopathy with prior visits. On Lactulose and Rafaximin per med rec. No evidence of infectious etiology at this time, UA normal. No significant metabolic derangements, no evidence of GI bleed. . - We will be more aggressive with lactulose and do 20 g every 2 hours when necessary achieving three stools per day. With this change yesterday he has not been getting regular lactulose so we will go ahead and change order to every 4 hours and every 2 hours when necessary. -Ammonia level was elevated at 300 today and I think it was because it was written as when necessary he was getting less lactulose with out having adequate bowel movements - Rifaximin 550 mg BID - IV Fluids 100 mL/hr -Concern that ammonia level is not decreasing very rapidly and we will proceed with checking CT of abdomen and pelvis with IV contrast to further investigate on 10/15/2016. Diffuse abdominal pain, mild, not present on admission, acute We will go ahead and check abdominal x-ray series which were done on October 13 and revealed some gas within the colon otherwise no acute abnormalities -We will proceed with CT of abdomen and pelvis contrast as noted above Cirrhosis, secondary to hepatitis C infection, chronic - Will check PT/INR Chronic thrombocytopenia, Present on admission, active - Secondary to cirrhosis. Will hold subq heparin and use SCD's. Chronic Normocytic Anemia, presumed stable - Monitor CBC Patient Status: Patient is changed to inpatient status as is requiring greater than two midnights to be medically stable for discharge. Code Status: Full Code VTE Mechanical Devices: Intermittant Pneumatic CD Resuscitation Status: CPR: Attempt Resuscitation Time spent 30 minutes Steph Meléndez MD Oct 15, 2016 15:52
--- NOTE | 2016-10-15 16:47 | DRSVH ---
PROCEDURE: CT ABDOMEN AND PELVIS WITH CONTRAST ([id number]) INDICATIONS: hepatic encephalopathy TECHNIQUE: After the administration of oral and intravenous contrast, 5 mm thick sections acquired from the diap hragms to the symphysis. 5 mm thick coronal and sagittal reformats were performed. For radiation do se reduction, the following was used: automated exposure control, adjustment of mA and/or kV accordi ng to patient size. COMPARISON: [facility], US, US ABDOMEN, 10/11/2016, 12:13. [facility], CR, X R ABD ACUTE SERIES 3VW, 10/13/2016, 10:52. FINDINGS: Image quality: Excellent. ABDOMEN: Lung bases: Lung bases are clear. Heart size is normal. Solid organs: Liver and spleen are asymmetric in size but normal in enhancement, with the right hepa tic lobe small and the left hepatic lobe mildly enlarged but the spleen globally prominently enlarged at 217.9 cm craniocaudad. There are varices extending from the fissure for the falciform ligament t owards the midline, and also what appears to be prominent varices extending from the splenic hilum to wards the midline and towards the right kidney, presumably representing evidence of portal venous col lateral shunting. Ascites is not found. Gallbladder appears contracted and contains a moderate-sized calcified gallstone. Biliary system is non-dilated. Pancreas enhances normally. No adrenal nodules. Kidneys are normal in size and enhanc ement, without hydronephrosis. Peritoneum and bowel: Stomach, small bowel, and colon loops are normal in caliber and wall thickness . No free fluid or air. Nodes and vessels: No retroperitoneal or mesenteric adenopathy. Aorta and inferior vena cava are no rmal in caliber. Miscellaneous: No ventral hernias. PELVIS: Genitourinary: Bladder wall thickness is normal. Miscellaneous: No inguinal hernias or adenopathy. Bones: No suspicious bony lesions. No vertebral body compression fractures. IMPRESSION: Cirrhosis, portal hypertension, varices, splenomegaly, but no ascites is found and there is no suspicion for underlying hepatic malignancy. The gallbladder is contracted, and contains a densely calcified centrally positioned 12 mm gallstone. Dictated by: Ronny Oakes M.D. on 10/15/2016 at 16:28 Approved by: Ronny Oakes M.D. on 10/15/2016 at 16:45
--- NOTE | 2016-10-15 17:20 | NUR ---
Bowel Movements/Mentation Patient receiving lactulose q4h as well as PRN doses q2h if BM's are <3 x daily. Patient agreed to take a PRN dose of lactulose & senna x 2, states he's had one small runny diarrhea & feels he can have another. Continuing to monitor. Ammonia level 228 this a.m., down from 238 yesterday a.m., mentation appears to be at baseline, O x 3.
[2016-10-15 17:25] VITALS: BP 131/79; PULSE 58; RESP 18; O2SAT 96
[2016-10-16 00:01] VITALS: BP 123/61; PULSE 65; RESP 16; O2SAT 95
[2016-10-16] MEDS: Alum-Mag Hydrox-Simeth 30 mL Suspension PO PRN ×2 (00:14→06:48)
[2016-10-16] MEDS: Lactulose 20 Gm/30 mL 30 mL Syrup PO PRN ×2 (00:14→13:32)
[2016-10-16] MEDS: Lactulose 20 Gm/30 mL 30 mL Syrup PO SCH ×7 (03:14→22:39)
[2016-10-16] MEDS: Ondansetron 2 mg/mL 2 mL Inj IVPUSH PRN ×2 (04:40→14:50)
[2016-10-16 04:47] VITALS: BP 112/64; PULSE 69; RESP 20; O2SAT 95
--- NOTE | 2016-10-16 06:34 | NUR ---
Nausea/Emesis/Lactulose Pt unable to hold lactulose and throw up around 70mL's of undigested emesis. Has been complaining of Lactulose making him feel sick. Administered zofran for nausea and vomiting relief. VSS and has been afebrile overnight.
[2016-10-16 07:26] LABS: Magnesium 1.8 mg/dL (1.6-2.6)
[2016-10-16] MEDS: 0.9% Sodium Chloride 1,000 ML IV SCH ×3 (08:31→22:38)
[2016-10-16 12:55] VITALS: BP 108/61; PULSE 65; RESP 18; O2SAT 96
--- NOTE | 2016-10-16 17:59 | NUR ---
Bowels/GI/Gallstone/Mentation Lactulose x 4 doses (3 scheduled, 1 PRN) during shift, stated had 2 moderate sized bowel movements. IV fluids started d/t possibility of dehydration. Nauseated x 1 today, ondansetron 4mg admin w/ a good effect. Consumed 100% of dinner, tolerated well, no c/o nausea. Moderate size/12mm gallstone found on abd CT, patient unaware, carenotes/education given on gallstones. Sleepy most of shift, getting up to bathroom independently, mentation appears to be @ baseline, O x 3.
[2016-10-16 20:30] VITALS: BP 138/75; PULSE 68; RESP 18; O2SAT 98
--- NOTE | 2016-10-17 04:40 | NUR ---
Lactulose Pt refused 229 schedule med. States he doesn't take it at home at that hour-is afraid he would soil the bed.
[2016-10-17 04:56] VITALS: BP 111/61; PULSE 63; O2SAT 96
[2016-10-17] MEDS: Lactulose 20 Gm/30 mL 30 mL Syrup PO SCH ×5 (09:01→22:28)
[2016-10-17 09:32] VITALS: BP 116/71; PULSE 63; RESP 18; O2SAT 96
[2016-10-17] MEDS: 0.9% Sodium Chloride 1,000 ML IV SCH ×3 (11:34→19:43)
[2016-10-17] MEDS: Alum-Mag Hydrox-Simeth 30 mL Suspension PO PRN ×2 (11:34→20:39)
--- NOTE | 2016-10-17 11:40 | PCM.PNMED ---
Subjective Date of Service Oct 17, 2016 Subjective Patient currently resting in bed and has no new complaints. He does note early this morning he had a very liquid bowel movement. Exam Vital Signs Vital Sign - Last Date Time Temp Pulse Resp B/P Pulse Ox O2 Delivery O2 Flow Rate FiO2 10/17/16 09:32 36.1 63 18 116/71 96 Room Air Intake and Output 10/16/16 10/16/16 10/17/16 Cumulative From/Thru 15:00 23:00 07:00 10/11/16 00:22 - 10/17/16 04:59 Intake Total 118 ml 2006 ml 1300 ml 48044 ml Output Total 375 ml Balance 118 ml 2006 ml 1300 ml 25971 ml Intake Oral 118 ml 873 ml 7040 ml IV Total 1133 ml 1300 ml 3399 ml Output Urine Total 300 ml Stool Total 5 ml Emesis 70 ml # Voids 3 3 27 # Bowel Movements 1 1 8 Exam Constitutional: Middle-aged male in no acute distress Head: Normocephalic and medical Chest: Clear to auscultation Cor: Regular rate and rhythm S1-S2 Abdomen: Soft nontender bowel sounds present Extremities: No pedal edema Neuro: Alert and oriented 3, motor strength is intact bilaterally IVs and Medications Medications Reviewed: Medications were reviewed in detail Lab and Diagnostics Laboratory Tests 72 Hours Test 10/15/16 06:07 10/16/16 05:48 10/17/16 07:15 Sodium Level 139mEq/L (134-144) 139mEq/L (134-144) 139mEq/L (134-144) Potassium Level 4.2mEq/L (3.5-5.2) 4.4mEq/L (3.5-5.2) 4.3mEq/L (3.5-5.2) Chloride Level 106mEq/L (97-108) 105mEq/L (97-108) 108mEq/L (97-108) Carbon Dioxide Level 22mmol/L (18-29) 21mmol/L (18-29) 20mmol/L (18-29) Blood Urea Nitrogen 11mg/dL (6-24) 11mg/dL (6-24) 10mg/dL (6-24) Creatinine 0.62mg/dL (0.76-1.27) 0.50mg/dL (0.76-1.27) 0.46mg/dL (0.76-1.27) Estimat Glomerular Filtration Rate 147mL/min (>59) 188mL/min (>59) 207mL/min (>59) Glucose Level 102mg/dL (60-99) 107mg/dL (60-99) 99mg/dL (60-99) Calcium Level 7.6mg/dL (8.5-10.1) 8.0mg/dL (8.5-10.1) 7.8mg/dL (8.5-10.1) Total Bilirubin 2.2mg/dL (0.0-1.2) 2.4mg/dL (0.0-1.2) 2.1mg/dL (0.0-1.2) Aspartate Amino Transf (AST/SGOT) 40U/L (0-50) 42U/L (0-50) 36U/L (0-50) Alanine Aminotransferase (ALT/SGPT) 18U/L (0-44) 20U/L (0-44) 17U/L (0-44) Alkaline Phosphatase 81U/L (25-150) 84U/L (25-150) 73U/L (25-150) Ammonia 228ug/dL (18-53) 246ug/dL (18-53) 200ug/dL (18-53) Total Protein 5.4g/dL (6.4-8.4) 5.7g/dL (6.4-8.4) 5.3g/dL (6.4-8.4) Albumin 2.5g/dL (3.4-5.0) 2.7g/dL (3.4-5.0) 2.6g/dL (3.4-5.0) Phosphorus Level 3.0mg/dL (2.5-4.9) Magnesium Level 1.8mg/dL (1.6-2.6) Result Diagram: 10/13/16 0540 10/17/16 0715 X-Rays, CTs and MRIs Conclusion: 1. No acute intracranial hemorrhage or mass effect 2. Patchy white matter lucency may relate to chornic small vessel ischemic changes although this is advanced for patient age, query long-standing hypertension or diabetes. Differential includes vasculitis, migraine disorder, demyelinating disease, among other etiologies. Signed by Dr. Juan Antonio Choe 10/11/16 0:48 Study: Head CT no contrast Interpretation / Wet Read by: Interpret - Radiologist Assessment & Plan Ezekiel Muniz is a 50-year-old gentleman with a past medical history of hypertension, alcoholism and hepatitis C cirrhosis, and traumatic brain injury who presents with altered mental status. Hepatic encephalopathy, Present on Admission, Active Differential includes substance abuse with bedside urine tox positive for methamphetamine, marijuana and benzo (recieved versed in the field). Patient has history of hepatic encephalopathy with prior visits. On Lactulose and Rafaximin per med rec. No evidence of infectious etiology at this time, UA normal. No significant metabolic derangements, no evidence of GI bleed. . - We will be more aggressive with lactulose and do 20 g every 2 hours when necessary achieving three stools per day. With this change yesterday he has not been getting regular lactulose so we will go ahead and change order to every 4 hours and every 2 hours when necessary. -Ammonia level was elevated at 300 today and I think it was because it was written as when necessary he was getting less lactulose with out having adequate bowel movements - Rifaximin 550 mg BID - IV Fluids 100 mL/hr -Concern that ammonia level is not decreasing very rapidly and we will proceed with checking CT of abdomen and pelvis with IV contrast to further investigate on 10/15/2016. -2 days ago stopped tramadol is thinking this may be contributing to elevated ammonia level and yesterday stopped low-dose oxycodone and ammonia level is slightly better on October 17. Diffuse abdominal pain, mild, not present on admission, acute We will go ahead and check abdominal x-ray series which were done on October 13 and revealed some gas within the colon otherwise no acute abnormalities -We will proceed with CT of abdomen and pelvis contrast as noted above Cirrhosis, secondary to hepatitis C infection, chronic - Stable Chronic thrombocytopenia, Present on admission, active - Secondary to cirrhosis. Will hold subq heparin and use SCD's. Chronic Normocytic Anemia, presumed stable - Monitor CBC Patient Status: Patient is changed to inpatient status as is requiring greater than two midnights to be medically stable for discharge. Code Status: Full Code VTE Mechanical Devices: Intermittant Pneumatic CD Resuscitation Status: CPR: Attempt Resuscitation Time spent 20 minutes Steph Meléndez MD Oct 17, 2016 11:40
--- NOTE | 2016-10-17 11:50 | NUR ---
Social Work-continued d/c planning: Data:EMR Reviewed. Pt is on day 6 of hospitalization for AMS per H&P. Pt is not medically stable, anticipate several more days. Pt resides at home with friends. Pt has meet with CDP and has declined any resources from her or SW. Per RN notes, pt has been up independent in his room. No anticipated discharge needs. SW will continue to follow if needs arise. Assessment:Pt who is independent at baseline. plan:Pt to discharge home when medically stable via POV. Pt has declined CD resources from SW and CDP. No anticipated discharge needs. SW will continue to follow if needs arise. ESTHER Cohen
[2016-10-17 16:38] VITALS: BP 122/69; PULSE 73; RESP 18; O2SAT 98
--- NOTE | 2016-10-17 18:49 | NUR ---
BM/Lactulose Pt very cooperative during shift taking lactulose. During morning assessment, pt states he has not had a BM this morning, just 2 last night. Later in afternoon, when prompted - pt states he had 2 BM this morning - one early and one around 10AM. ALLIED HEALTH TEACHER did not get visual on BM. Instructed pt to let staff know when having BM. Pt answers questions appropriately but may have some inconsistencies with time. Continuing to follow.
[2016-10-17 21:15] VITALS: BP 123/74; PULSE 66; RESP 18; O2SAT 97
[2016-10-18] MEDS: Lactulose 20 Gm/30 mL 30 mL Syrup PO SCH ×7 (02:27→21:57)
--- NOTE | 2016-10-18 05:58 | NUR ---
Noncompliance Pt refused IVF at late pm due to IV pump alarm intermittently went off, indicate "distal occlusion". NS flush patient, IV at right wrist, maybe occluded by movement of hand. Offer pt to place a 2nd IV, pt refuses it and states "Turn it (IV fluid) off! otherwise I pull it off!". Pt also refuses Lactulose and morning vitals.
[2016-10-18] MEDS: 0.9% Sodium Chloride 1,000 ML IV SCH ×3 (07:00→23:00)
[2016-10-18 11:25] VITALS: BP 120/64; PULSE 74; RESP 18; O2SAT 98
--- NOTE | 2016-10-18 11:28 | NUR ---
Noncompliance/Behaviour Pt agitated this AM, refusing vitals, IV fluid orders, lactulose, and Nadolol. Wants to go home, upset about ammonia levels/doesnt believe results. informed, orders for repeat Ammonia to verify. Ammonia is slightly lower but still elevated at 303. Pt told results, willing to take some lactulose but not full dose. Willing to accept IV fluids but states he will be leaving around noon even he has to walk out. AMA paperwork printed. Pt later informs staff that the place he is staying is locked up and he doesnt have a ride. That he is willing to stay for the day because he doesnt have anywhere to go at the moment. Pt is willing to comply with some care while here.
--- NOTE | 2016-10-18 13:33 | PCM.PNMED ---
Subjective Date of Service Oct 18, 2016 Subjective Patient refused approximately 3 doses of lactulose yesterday evening through the night. He is quite upset about not being able to go home today as his ammonia level was in the 300s. He however notes that he is back to his baseline. Exam Vital Signs Vital Sign - Last Date Time Temp Pulse Resp B/P Pulse Ox O2 Delivery O2 Flow Rate FiO2 10/18/16 11:25 36.9 74 18 120/64 98 Room Air Intake and Output 10/17/16 10/17/16 10/18/16 Cumulative From/Thru 15:00 23:00 07:00 10/11/16 00:22 - 10/17/16 21:02 Intake Total 560 ml 2504 ml 26178 ml Output Total 325 ml 300 ml 1000 ml Balance 235 ml 2204 ml 31981 ml Intake Oral 560 ml 816 ml 8416 ml IV Total 1688 ml 5087 ml Output Urine Total 325 ml 300 ml 925 ml Stool Total 5 ml Emesis 70 ml # Voids 1 2 30 # Bowel Movements 8 Exam Constitutional: Middle-aged male in no acute distress Head: Normocephalic medical Chest: Clear to auscultation Cor: Regular rate and rhythm S1-S2 Abdomen: Soft nontender bowel sounds present Extremities: No pedal edema Neuro: Alert and oriented 3, motor strength is intact bilaterally IVs and Medications Medications Reviewed: Medications were reviewed in detail Lab and Diagnostics Laboratory Tests 72 Hours Test 10/16/16 05:48 10/17/16 07:15 10/18/16 06:00 10/18/16 08:15 Sodium Level 139mEq/L (134-144) 139mEq/L (134-144) Potassium Level 4.4mEq/L (3.5-5.2) 4.3mEq/L (3.5-5.2) Chloride Level 105mEq/L (97-108) 108mEq/L (97-108) Carbon Dioxide Level 21mmol/L (18-29) 20mmol/L (18-29) Blood Urea Nitrogen 11mg/dL (6-24) 10mg/dL (6-24) Creatinine 0.50mg/dL (0.76-1.27) 0.46mg/dL (0.76-1.27) Estimat Glomerular Filtration Rate 188mL/min (>59) 207mL/min (>59) Glucose Level 107mg/dL (60-99) 99mg/dL (60-99) Calcium Level 8.0mg/dL (8.5-10.1) 7.8mg/dL (8.5-10.1) Phosphorus Level 3.0mg/dL (2.5-4.9) Magnesium Level 1.8mg/dL (1.6-2.6) Total Bilirubin 2.4mg/dL (0.0-1.2) 2.1mg/dL (0.0-1.2) Aspartate Amino Transf (AST/SGOT) 42U/L (0-50) 36U/L (0-50) Alanine Aminotransferase (ALT/SGPT) 20U/L (0-44) 17U/L (0-44) Alkaline Phosphatase 84U/L (25-150) 73U/L (25-150) Ammonia 246ug/dL (18-53) 200ug/dL (18-53) 337ug/dL (18-53) 303ug/dL (18-53) Total Protein 5.7g/dL (6.4-8.4) 5.3g/dL (6.4-8.4) Albumin 2.7g/dL (3.4-5.0) 2.6g/dL (3.4-5.0) Result Diagram: 10/13/16 0540 10/17/16 0715 X-Rays, CTs and MRIs Conclusion: 1. No acute intracranial hemorrhage or mass effect 2. Patchy white matter lucency may relate to chornic small vessel ischemic changes although this is advanced for patient age, query long-standing hypertension or diabetes. Differential includes vasculitis, migraine disorder, demyelinating disease, among other etiologies. Signed by Dr. Juan Antonio Choe 10/11/16 0:48 Study: Head CT no contrast Interpretation / Wet Read by: Interpret - Radiologist Assessment & Plan Ezekiel Muniz is a 50-year-old gentleman with a past medical history of hypertension, alcoholism and hepatitis C cirrhosis, and traumatic brain injury who presents with altered mental status. Hepatic encephalopathy, Present on Admission, Active Differential includes substance abuse with bedside urine tox positive for methamphetamine, marijuana and benzo (recieved versed in the field). Patient has history of hepatic encephalopathy with prior visits. On Lactulose and Rafaximin per med rec. No evidence of infectious etiology at this time, UA normal. No significant metabolic derangements, no evidence of GI bleed. . - We will be more aggressive with lactulose and do 20 g every 2 hours when necessary achieving three stools per day. With this change yesterday he has not been getting regular lactulose so we will go ahead and change order to every 4 hours and every 2 hours when necessary. -Ammonia level was elevated at 300 today and I think it was because it was written as when necessary he was getting less lactulose with out having adequate bowel movements - Rifaximin 550 mg BID - IV Fluids 100 mL/hr -Concern that ammonia level is not decreasing very rapidly and we will proceed with checking CT of abdomen and pelvis with IV contrast to further investigate on 10/15/2016. -2 days ago stopped tramadol is thinking this may be contributing to elevated ammonia level and yesterday stopped low-dose oxycodone and ammonia level is slightly better on October 17. -The morning of October 18 his ammonia level went up approximately 30 points. He had refused several doses of lactulose overnight. Encouraged him to be compliant with these as it is needed to get his ammonia level down. We will continue with IV fluid hydration also. Diffuse abdominal pain, mild, not present on admission, acute We will go ahead and check abdominal x-ray series which were done on October 13 and revealed some gas within the colon otherwise no acute abnormalities -We will proceed with CT of abdomen and pelvis contrast as noted above Cirrhosis, secondary to hepatitis C infection, chronic - Stable Chronic thrombocytopenia, Present on admission, active - Secondary to cirrhosis. Will hold subq heparin and use SCD's. Chronic Normocytic Anemia, presumed stable - Monitor CBC Patient Status: Patient is changed to inpatient status as is requiring greater than two midnights to be medically stable for discharge. Code Status: Full Code VTE Mechanical Devices: Intermittant Pneumatic CD Resuscitation Status: CPR: Attempt Resuscitation Time spent 30 minutes Steph Meléndez MD Oct 18, 2016 13:33
--- NOTE | 2016-10-18 18:15 | NUR ---
Improved behaviour/BM After learning pt home was not available at this time. Pt was more cooperative, willing to follow direction. Refused IV fluids, wanted IV taken out, IV was also causing some issues/bleeding and occluding - IV DCd intact. Pt states willing to follow Lactulose regimen if can stop IV fluids. informed. Pt taking Lactulose as ordered. Pt had 3 BM during shift. Was instructed to let staff see but reported 2 and 1 was viewed. Benson watery stool. AMA paperwork available if pt decides to leave.
[2016-10-18 20:16] VITALS: BP 144/78; PULSE 69; RESP 18; O2SAT 98
[2016-10-18] MEDS: Alum-Mag Hydrox-Simeth 30 mL Suspension PO PRN (20:31)
--- NOTE | 2016-10-18 22:05 | PCM.PNMED ---
Subjective Date of Service Oct 19, 2016 Subjective 50 yo male with hep Ca nd cirrhosis admitted for hepatic encephalopathy on 10/15. Ammonia is being trended, worsening but pt is refusing lactulose. Hehas hx of polysubstabce abuse, bed side urine tox screen positive for benzo, marjuana and meth. He has not met the 3-4 stools per day goal Exam Vital Signs Vital Sign - Last Date Time Temp Pulse Resp B/P Pulse Ox O2 Delivery O2 Flow Rate FiO2 10/18/16 20:16 37.1 69 18 144/78 98 Room Air Intake and Output 10/17/16 10/17/16 10/18/16 Cumulative From/Thru 15:00 23:00 07:00 10/11/16 00:22 - 10/17/16 21:02 Intake Total 560 ml 2504 ml 16501 ml Output Total 325 ml 300 ml 1000 ml Balance 235 ml 2204 ml 33131 ml Intake Oral 560 ml 816 ml 8416 ml IV Total 1688 ml 5087 ml Output Urine Total 325 ml 300 ml 925 ml Stool Total 5 ml Emesis 70 ml # Voids 1 2 30 # Bowel Movements 8 Exam Constitutional: Middle-aged male in no acute distress Head: Normocephalic medical Chest: Clear to auscultation Cor: Regular rate and rhythm S1-S2 Abdomen: Soft nontender bowel sounds present Extremities: No pedal edema Neuro: Alert and oriented 3, motor strength is intact bilaterally IVs and Medications Medications Reviewed: Medications were reviewed in detail Lab and Diagnostics Result Diagram: 10/13/16 0540 10/17/16 0715 X-Rays, CTs and MRIs Conclusion: 1. No acute intracranial hemorrhage or mass effect 2. Patchy white matter lucency may relate to chornic small vessel ischemic changes although this is advanced for patient age, query long-standing hypertension or diabetes. Differential includes vasculitis, migraine disorder, demyelinating disease, among other etiologies. Signed by Dr. Juan Antonio Choe 10/11/16 0:48 Study: Head CT no contrast Interpretation / Wet Read by: Interpret - Radiologist Assessment & Plan Ezekiel Muniz is a 50-year-old gentleman with a past medical history of hypertension, alcoholism and hepatitis C cirrhosis, and traumatic brain injury who presents with altered mental status. Hepatic encephalopathy, Present on Admission, Active Differential includes substance abuse with bedside urine tox positive for methamphetamine, marijuana and benzo (recieved versed in the field). Patient has history of hepatic encephalopathy with prior visits. On Lactulose and Rafaximin per med rec. No evidence of infectious etiology at this time, UA normal. No significant metabolic derangements, no evidence of GI bleed. . - We will be more aggressive with lactulose and do 20 g every 2 hours when necessary achieving three stools per day. With this change yesterday he has not been getting regular lactulose so we will go ahead and change order to every 4 hours and every 2 hours when necessary. -Ammonia level was elevated at 300 today and I think it was because it was written as when necessary he was getting less lactulose with out having adequate bowel movements - Rifaximin 550 mg BID - IV Fluids 100 mL/hr -Concern that ammonia level is not decreasing very rapidly and we will proceed with checking CT of abdomen and pelvis with IV contrast to further investigate on 10/15/2016. -2 days ago stopped tramadol is thinking this may be contributing to elevated ammonia level and yesterday stopped low-dose oxycodone and ammonia level is slightly better on October 17. -The morning of October 18 his ammonia level went up approximately 30 points. He had refused several doses of lactulose overnight. Encouraged him to be compliant with these as it is needed to get his ammonia level down. We will continue with IV fluid hydration also. -- Consult GI Diffuse abdominal pain, mild, not present on admission, acute -abdominal x-ray series which were done on October 13 and revealed some gas within the colon otherwise no acute abnormalities -CT of abdomen and pelvis contrast show--ed cirrhosis, portal htn, varices, splenomegaly and a 12 mm galstone Cirrhosis, secondary to hepatitis C infection, chronic - Stable Chronic thrombocytopenia, Present on admission, active - Secondary to cirrhosis. Will hold subq heparin and use SCD's. Chronic Normocytic Anemia, presumed stable - Monitor CBC Patient Status: Patient is changed to inpatient status as is requiring greater than two midnights to be medically stable for discharge. Code Status: Full Code VTE Mechanical Devices: Intermittant Pneumatic CD Resuscitation Status: CPR: Attempt Resuscitation Time spent 25 min Nora Beltran DO Oct 18, 2016 22:05
[2016-10-19] MEDS: Lactulose 20 Gm/30 mL 30 mL Syrup PO SCH ×4 (00:50→10:16)
[2016-10-19] MEDS: Lactulose 20 Gm/30 mL 30 mL Syrup PO PRN ×3 (00:52→06:37)
[2016-10-19] MEDS: Alum-Mag Hydrox-Simeth 30 mL Suspension PO PRN (03:49)
--- NOTE | 2016-10-19 06:41 | NUR ---
Lactulose and BM Pt compliance with Lactulose 30 GM q3h, report 2 BM (not visualized) during the shift. Pt provided paper and pen to write down BM for accurate documentation, and let nursing staff to visualized the stool. c/o abdominal cramping and heart burn due to Lactulose, Maalox given, HOB 30. Symptoms improved some.
[2016-10-19] MEDS: 0.9% Sodium Chloride 1,000 ML IV SCH (06:45)
--- NOTE | 2016-10-19 11:34 | PCM.DIMED ---
Discharge Instructions Date of Service Oct 19, 2016 Dates of Hospitalization Oct 11, 2016 at 03:03 Discharge Diagnosis Discharge Diagnosis Hepatic Encephalopathy Diet Discharge Diet: Other (Eat plenty of snacks. MAke sure to eat enough protein) Activity Discharge Activity: No restrictions Call your provider Call your provider for: Fever or Chills, Shortness of breath, Bleeding, Chest pain, Vomitting, Excessive diarrhea, Weakness (unilateral), Other Patient Instructions Patient Instructions Please f/u with GI in 3-4 weeks. Please avoid recreational drugs as this will cause worsening of mental status Please target 3-4 BM daily. If having more BM, you may reduce the dose to half. Follow-up plan F/U with [facility] in one week Nora Beltran DO Oct 19, 2016 11:33
--- NOTE | 2016-10-19 11:36 | PCM.DC.MED ---
Discharge Summary Date of Service Oct 19, 2016 Dates of Hospitalization Date of Hospital Admission Oct 11, 2016 at 03:03 Date of Discharge: Oct 19, 2016 Providers: Admitting Physician: Neeta Mirza MD Primary Care Physician: [facility] Attending Physician: Nora Small DO Diagnosis at Time of Discharge Diagnosis at Time of Discharge Hepatic Encephalopathy, Hepatitis C, Cihrrhosis, Portal Hypertension Procedures XRay, CTs & MRIs PROCEDURE: CT ABDOMEN AND PELVIS WITH CONTRAST ([id number]) INDICATIONS: hepatic encephalopathy IMPRESSION: Cirrhosis, portal hypertension, varices, splenomegaly, but no ascites is found and there is no suspicion for underlying hepatic malignancy. The gallbladder is contracted, and contains a densely calcified centrally positioned 12 mm gallstone. Dictated by: Ronny Oakes M.D. on 10/15/2016 at 16:28 Approved by: Ronny Oakes M.D. on 10/15/2016 at 16:45 PROCEDURE: X-RAY ACUTE ABDOMINAL SERIES ([id number]) INDICATIONS: diffuse abdominal pain IMPRESSION: 1. Gas-filled colon otherwise bowel gas pattern is normal. 2. Cholelithiasis. PROCEDURE: X-RAY RIGHT HAND, TWO VIEWS ([id number]) INDICATIONS: possible trauma, unable to squeeze IMPRESSION: No displaced acute fracture seen. 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 There degenerative changes in the radiocarpal joint and interphalangeal joints. If there is continued pain, followup exam or additional imaging such as MRI or CT could be performed for further assessment. Dictated by: Natalio Da Silva [facility] Interpreted: Umang Espinoza MD on 10/11/2016 at 12:55 Approved by: Umang Espinoza M.D. on 10/11/2016 at 13:41 PROCEDURE: US ABDOMEN INDICATIONS: cirrhosis abd pain previous ascities IMPRESSION: 1. Coarse and heterogeneous appearance of the hepatic parenchyma in this patient with history of hepatic cirrhosis. No discrete focal hepatic abnormality seen. 2. Cholelithiasis. 3. Sonographic splenomegaly. Dictated by: Natalio SANZ Interpreted: Greta Fair MD on 10/11/2016 at 14:34 Approved by: Greta Fair MD, PhD on 10/11/2016 at 15:20 PROCEDURE: CT BRAIN WITHOUT CONTRAST ([id number]) INDICATIONS: altered ms . IMPRESSION: Question of increasing ischemic change royal-white matter interface in the left occipital lobe versus artifact or volume averaging of sulci and gyri a slightly different level than the preceding scan. No evidence for bleed or acute change otherwise. Patchy white matter changes and nonspecific pattern consistent with microvascular ischemic change, relatively prominent for 50-year-old. Small vessel disease would suggest hypertensive disease most commonly or diabetes but couldn't good other vasculitis. Dictated by: Umang Espinoza M.D. on 10/11/2016 at 8:43 this report corresponds to the findings of the preliminary NSR report. Approved by: Umang Espinoza M.D. on 10/11/2016 at 8:53 PROCEDURE: X-RAY CHEST ONE VIEW, PORTABLE ([id number]) INDICATIONS: altered ms IMPRESSION: Interstitial prominence similar to prior examination. No definite acute cardiopulmonary process. Dictated by: Natalio SANZ Interpreted: Umang Espinoza MD on 10/11/2016 at 8:49 Approved by: Umang Espinoza M.D. on 10/11/2016 at 10:50 Brief History Ezekiel Muniz is a 50-year-old gentleman with a past medical history of hypertension, alcoholism and hepatitis C cirrhosis, and traumatic brain injury who presents with altered mental status. Per the ED note, his roommate called EMS when he found the patient defecating around the house. He was sedated with ketamine and midazolam en route due to aggressive and violent behavior. Upon questioning at around 0400 today, he was slurring his words significantly and had difficulty staying focused. He was apologetic when he was told that he was sedated due to aggression. He was able to confirm that he takes lactulose for high ammonia levels. He denied recent drug and alcohol use. He complained of lower back pain. He denied chest pain. He continually asked if he was in a video game. Most of his speech was incomprehensible. In the ED, his CBC showed mild normocytic anemia, increased RDW, and low platelets at 71. His CMP showed normal lactate 1.5, high chloride 110, low calcium 8.0, total bilirubin 3.0, low total protein 5.8, low albumin 2.8, and an ammonia level of 287. Urine was negative for salicylates, acetaminophen, and alcohol. Urinalysis showed no signs of infection. Bedside urine tox dip was positive for benzodiazepines, marijuana, and methamphetamines. Hospital Course Ezekiel Muniz is a 50-year-old gentleman with a past medical history of hypertension, alcoholism and hepatitis C cirrhosis, and traumatic brain injury who presents with altered mental status. Hepatic encephalopathy, Present on Admission, resolved Differential includes substance abuse with bedside urine tox positive for methamphetamine, marijuana and benzo (recieved versed in the field). Patient has history of hepatic encephalopathy with prior visits. On Lactulose and Rafaximin per med rec. No evidence of infectious etiology at this time, UA normal. No significant metabolic derangements, no evidence of GI bleed. . - Patient has agreed that he had used THC, he does not when he did meth ("I don' t remember"). However, it appears that he took the recreational drugs, then ignored lactulose prior to becoming altered menatlly. Thus, benzo, meth and THC seem to have contributed to his AMS, then he disregarded his lactulose regimen. He is treated with alctulose, rifaximin and nadolol. He is back to his baseline and wanting to go home on 10/19/16. He wanted to leave AMA and I discussed his hospital course, we agreed that he could be discharged home with proper f/u. Gave him scripts for omeprazole and nadolol. Asked him to d/c propranolol as he should not need two beta blockers. There is no need to trend ammonia in a patient like this as long as he is clinically improving. - Diffuse abdominal pain, mild, not present on admission, resolved -abdominal x-ray series which were done on October 13 and revealed some gas within the colon otherwise no acute abnormalities -CT of abdomen and pelvis contrast show--ed cirrhosis, portal htn, varices, splenomegaly and a 12 mm galstone -Patient may f/u as outpatient for cholelithiasis with gens urg via his PCP for potential cholecystectomy in he becomes symptomatic. - He has no pain, no nausea and he is maintaining good appetite on the day of discharge. He would like to be discharged home. Cirrhosis, secondary to hepatitis C infection, chronic - Stable Chronic thrombocytopenia, Present on admission, active - Secondary to cirrhosis. Will hold subq heparin and use SCD's. Chronic Normocytic Anemia, presumed stable - Monitor CBC Patient Status: Patient is changed to inpatient status as is requiring greater than two midnights to be medically stable for discharge. Code Status: Full Code Exam Vital Signs (Last) Date Time Temp Pulse Resp B/P Pulse Ox O2 Delivery O2 Flow Rate FiO2 10/18/16 20:16 37.1 69 18 144/78 98 Room Air Exam General: NAD HEENT: NCAT, poor dentition Heart: RRR, no s3/s4 sounds Lungs: cTA, no crackles or wheezes Abd: Flat, non-tender, normal bowel sounds Psych: Agitated but was quickly agreeable to a proper d/c Neuro: AOA X 3 Neck: No JVD Test 10/11/16 00:28 10/11/16 00:40 10/11/16 00:58 10/11/16 06:22 Salicylates Level < 3.0ug/mL (30-250) Acetaminophen Level < 15.0ug/mL Rx (10-25) Alcohols < 10mg/dL (0-10) Urine Color Dark yellow (YELLOW) Urine Appearance Clear (CLEAR,HAZY) Urine pH 6.5 (5.0-8.0) Urine Specific Leander 1.020 (1.003-1.035) Urine Protein Negativemg/dL (NEG,TRACE) Urine Glucose (UA) Negativemg/dL (NEGATIVE) Urine Ketones Negativemg/dL (NEGATIVE) Urine Occult Blood Negative (NEGATIVE) Urine Nitrite Negative (NEGATIVE) Urine Bilirubin Small (NEGATIVE) Urine Ictotest Positive (Negative) Urine Urobilinogen >8.0mg/dL (NORMAL) Urine Leukocyte Esterase Negative (NEGATIVE) Urine RBC 0-2/hpf (0-2) Urine WBC 0-5/hpf (0-5) Urine Epithelial Cells Occasional/hpf (NONE-MOD) Urine Crystals None seen (NONE SEEN) Urine Bacteria Few/hpf (NONE-FEW) Urine Hyaline Casts None/lpf (NONE) Urine Granular Casts None seen (NONE SEEN) Urine Waxy Casts None seen (NONE SEEN) Urine Red Blood Cell Casts None seen (NONE SEEN) Urine White Blood Cell Casts None seen (NONE SEEN) Urine Mucus None seen (None Seen) Urine Trichomonas None seen (NONE SEEN) Urine Yeast None (NONE SEEN) Urinalysis Comment None Urine Culture Reflexed Not indicated Lactic Acid Level 1.5mmol/L (0.4-2.0) Prothrombin Time 17.3sec (8.1-12.5) Prothromb Time International Ratio 1.60ratio Strongyloides IgG Antibody Negative (Negative) Test 10/11/16 14:53 10/13/16 05:40 10/16/16 05:48 10/19/16 05:30 Direct Bilirubin 0.5mg/dL (0.0-0.3) White Blood Count 4.5th/mm3 (3.8-10.1) Red Blood Count 3.83mil/mm3 (4.40-5.80) Hemoglobin 11.1g/dL (13.8-17.2) Hematocrit 33.0% (41.0-50.0) Mean Corpuscular Volume 86.2fL (81-100) Mean Corpuscular Hemoglobin 29.0pg (27.0-35.0) Mean Corpuscular Hemoglobin Concent 33.6% (32.0-37.0) Red Cell Distribution Width 19.4% (12.3-15.4) Platelet Count 78bil/L (150-400) Neutrophils (%) (Auto) 46.1% (40-74) Lymphocytes (%) (Auto) 34.4% (14-46) Monocytes (%) (Auto) 10.8% (4-12) Eosinophils (%) (Auto) 7.2% (0-5) Basophils (%) (Auto) 1.3% (0-3) Phosphorus Level 3.0mg/dL (2.5-4.9) Magnesium Level 1.8mg/dL (1.6-2.6) Sodium Level 142mEq/L (134-144) Potassium Level 4.1mEq/L (3.5-5.2) Chloride Level 109mEq/L (97-108) Carbon Dioxide Level 21mmol/L (18-29) Blood Urea Nitrogen 11mg/dL (6-24) Creatinine 0.47mg/dL (0.76-1.27) Estimat Glomerular Filtration Rate 202mL/min (>59) Glucose Level 105mg/dL (60-99) Calcium Level 8.0mg/dL (8.5-10.1) Total Bilirubin 2.0mg/dL (0.0-1.2) Aspartate Amino Transf (AST/SGOT) 43U/L (0-50) Alanine Aminotransferase (ALT/SGPT) 22U/L (0-44) Alkaline Phosphatase 86U/L (25-150) Total Protein 5.9g/dL (6.4-8.4) Albumin 3.0g/dL (3.4-5.0) Test 10/19/16 07:45 Ammonia 305ug/dL (18-53) Discharge Medications Discharge Medications Lactulose (Lactulose) 20 Gm/30 Ml Solution 20 GM PO QID Prescribed by: KATE GOMES Nadolol (Nadolol) 40 Mg Tablet 40 MG PO DAILY Prescribed by: NORA SMALL DO Omeprazole (Omeprazole) 20 Mg Capsule.dr 20 MG PO DAILY Prescribed by: NORA SMALL DO Rifaximin (Xifaxan) 550 Mg Tablet 550 MG PO BID Prescribed by: NEETA MIRZA MD Followup Plan Follow-up plan F/U with [facility] in one week Discharge Diet: Other (Eat plenty of snacks. MAke sure to eat enough protein) Discharge Activity: No restrictions Patient Instructions Please f/u with GI in 3-4 weeks. Please avoid recreational drugs as this will cause worsening of mental status Please target 3-4 BM daily. If having more BM, you may reduce the dose to half. Time spent Greater than 30 minutes was spent in preparation of discharge with greater than 50% of that time dedicated to patient counseling and coordination of care. . Nora Small DO Oct 19, 2016 11:36
[2016-10-19] MEDS ORDERED: OMEP20CA11 PO (11:37)
[2016-10-19] MEDS ORDERED: NADO40TA PO (11:37)
--- NOTE | 2016-10-19 12:04 | NUR ---
Social Work-discharge: data:EMR reviewed. Pt is on day 8 of hospitalization for AMS per H&P. Pt is medically stable for discharge. Pt has declined Resources from . Pt has been up independent in his room. No discharge needs identified. All updated and agreeable to plan. Assessment:Pt who is independent at baseline. Plan:Pt to discharge home today via POV. No discharge needs identified. All updated and agreeable to plan. ESTHER Cohen
--- NOTE | 2016-10-19 12:09 | NUR ---
Behavior: On first introduction this am, patient extremely verbally abusive, called this RN a "bitch". Complaining about medications, care, plan of care. Attempted to calmly discuss issues with patient, however patient continued to speak over this RN and yelling "get that fucking doctor in here stat!" Refusing care, refused am physical assessments and would not speak to this RN any further. pack changer notified of patient behavior.
--- NOTE | 2016-10-19 12:13 | NUR ---
Discharge: Patient discharged to home @ approx 1200. Security unlocked closet to access personal belongings. Personal belongings sent home with patient. Reviewed home medication list, discharge instructions and follow up appointments. Discussed proper use of lactulose. Verbalized understanding. Patient ambulated to main entrance accompanied by this RN. No apparent distress at time of discharge.
== END 2016-10-19 12:05 | disposition home or self-care (01) | DRG 442 ==
LOC: EDBD 00:14 → SED 00:14 → INTOOBSV 03:03 → MPC 03:03 → OBSVTOIN 03:03
PROVIDERS: ADMIT Hospitalist; ATTEND Family Medicine
DX: K72.90 Hepatic failure, unspecified without coma (principal); K76.6 Portal hypertension; D69.6 Thrombocytopenia, unspecified; B19.20 Unspecified viral hepatitis C without hepatic coma; K74.69 Other cirrhosis of liver; F15.10 Other stimulant abuse, uncomplicated; I10 Essential (primary) hypertension; F17.200 Nicotine dependence, unspecified, uncomplicated; D64.9 Anemia, unspecified

== ENCOUNTER 2016-11-10 14:23 | Observation (INO) | payer OTHER ==
[~2016-11-10] VITALS: Ht 185.4 cm; Wt 90.0 kg
[~2016-11-10 14:23] MED LIST changes: -CLIN-78 PO; -LACT10SO27 PO; -MAGN400T23 PO; -MELA1TAB11 PO; +OMEP20CA11 PO
[2016-11-10 14:32] VITALS: BP 154/86; PULSE 90; RESP 20; O2SAT 90
--- NOTE | 2016-11-10 14:56 | ED.REPORT ---
HPI-General Illness Date of Service Nov 10, 2016 ED Provider: Miguel Schneider DO Pt is a 50 year old male with a hx of liver cirrhosis presenting to the ED complaining of confusion onset 3 days ago. Associated symptoms include lethargy , double vision, and diarrhea (from the lactulose). Denies vomiting, nausea, SOB or wheezing. He was recently admitted for similar symptoms October 11-. He states that he takes his Lactulose regularly. HPI limited secondary to patient condition, pt is somnolent, falling asleep during interview. Nursing Notes Stated Complaint: CIRRHOSIS OF LIVER Chief Complaint: General Complaint Nursing Notes Reviewed: Yes Allergies: Coded Allergies: acetaminophen (Verified Adverse Reaction, Unknown, 10/11/16) D/T LIVER FAILURE Scheduled Lactulose (Lactulose) 20 Gm/30 Ml Solution 20 GM PO QID Nadolol (Nadolol) 40 Mg Tablet 40 MG PO DAILY Omeprazole (Omeprazole) 20 Mg Capsule.dr 20 MG PO DAILY Rifaximin (Xifaxan) 550 Mg Tablet 550 MG PO BID General Time Seen by MD: 14:54 Chief Complaint Other (Confusion) Hx Obtained From: Patient Arrived By: Walk-in Sudden in Onset?: No Onset Occurred: 3 days ago Symptom Duration: Since onset Severity: Current: No pain currently Severity: Maximum: No pain Recent Healthcare: No recent doctor visit, Recent hospitalization Similar Sx Previous: Yes Past Medical History Past Medical History 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 History of cocaine and heroin use, in remission. HIV was negative on 10/23/13. MRSA nasal carriage on 09/08/13. Reports: GERD Past Surgical History Left hip and right wrist fracture repairs Smoking History Current Every Day Smoker Social History Alcohol Use: In recovery Drug Use: IV drugs, Meth Other Social History: Good social support, Homeless Ambulatory Status Independent Review of Systems Pt is falling asleep during interview so ROS limited Unable to Obtain ROS Patient condition Physical Exam Vital Signs Vital Signs Date Time Temp Pulse Resp B/P Pulse Ox O2 Delivery O2 Flow Rate FiO2 11/10/16 17:19 36.8 92 14 144/76 94 Nasal Cannula 2 11/10/16 15:11 84 18 165/84 94 Nasal Cannula 2 11/10/16 14:32 36.4 90 20 154/86 90 Initial VS: Reviewed General/Constitutional: Well-developed, Well-nourished ENT: Mucous membranes moist, Conjunctiva normal, No scleral icterus Neck: Supple, Non-tender, Full range of motion Respiratory: Breath sounds normal, Clear to auscultation, No respiratory distress Cardiovascular: Regular rate & rhythm, Heart sounds normal, Intact distal pulses Abdomen / GI: Soft, Non-tender, No guarding, No rebound, No distention Extremities: Vascular intact, Neuro intact, No swelling, No tenderness Skin: Warm, Dry, No cyanosis Psychiatric: Mood/affect normal, Behavior normal, Normal thought content Head / Eyes: Atraumatic, Normocephalic, PERRL, EOMI Double vision with rotary nystagmus. Neurologic: No motor deficits Somnolent, slurred speech. Falls asleep mid sentence. Interpretation & Diagnostics Lab Results Interpretation Result Diagram: 11/10/16 1451 11/10/16 1451 Test 11/10/16 14:51 White Blood Count 8.7th/mm3 (3.8-10.1) Red Blood Count 4.35mil/mm3 (4.40-5.80) Hemoglobin 12.8g/dL (13.8-17.2) Hematocrit 38.7% (41.0-50.0) Mean Corpuscular Volume 89.0fL (81-100) Mean Corpuscular Hemoglobin 29.4pg (27.0-35.0) Mean Corpuscular Hemoglobin Concent 33.1% (32.0-37.0) Red Cell Distribution Width 20.1% (12.3-15.4) Platelet Count 90bil/L (150-400) Neutrophils (%) (Auto) 80.3% (40-74) Lymphocytes (%) (Auto) 7.3% (14-46) Monocytes (%) (Auto) 10.9% (4-12) Eosinophils (%) (Auto) 1.0% (0-5) Basophils (%) (Auto) 0.2% (0-3) Prothrombin Time 15.4sec (8.1-12.5) Prothromb Time International Ratio 1.43ratio Sodium Level 138mEq/L (134-144) Potassium Level 4.4mEq/L (3.5-5.2) Chloride Level 104mEq/L (97-108) Carbon Dioxide Level 20mmol/L (18-29) Blood Urea Nitrogen 12mg/dL (6-24) Creatinine 0.58mg/dL (0.76-1.27) Estimat Glomerular Filtration Rate 158mL/min (>59) Glucose Level 94mg/dL (60-99) Lactic Acid Level 3.6mmol/L (0.4-2.0) Calcium Level 8.3mg/dL (8.5-10.1) Magnesium Level 1.7mg/dL (1.6-2.6) Total Bilirubin 5.0mg/dL (0.0-1.2) Aspartate Amino Transf (AST/SGOT) 56U/L (0-50) Alanine Aminotransferase (ALT/SGPT) 30U/L (0-44) Alkaline Phosphatase 121U/L (25-150) Ammonia 113ug/dL (18-53) Troponin T < 0.010ug/L (0.0-0.011) Total Protein 6.7g/dL (6.4-8.4) Albumin 3.3g/dL (3.4-5.0) Lipase 47U/L (13-60) ECG Interpretation Time: 14:55 Interpreted by: ED physician Normal ECG Interpretation: Normal ECG w/ rate of... (91), Normal rate, Normal sinus rhythm CT Head Interpretation IMPRESSION: 1. No acute intracranial abnormality. 2. No change in mild white matter disease. Differential considerations in a patient of this age include early small vessel ischemic disease, diabetes mellitus, vasculitides, and demyelinating disorders, such as multiple sclerosis. Dictated by: Cinda Guillen M.D. on 11/10/2016 at 15:56 Study: Head CT no contrast Interpretation / Wet Read by: Interpret - Radiologist Re-Eval/Medical Decision Med Decision/Clinical Course Admit for hydration, stroke protocol rule out secondary to diplopia. His ammonia needs be treated as well however his tolerated ammonia at 250 in the past. Case discussed with our hospitalist and he was admitted in stable condition. Time of Eval: 17:00 Patient Status: Condition improved Re-Evaluation/Progress Note: Discussed plan for admission. Pt understands and agrees with plan. Consultation : Referral / Consult Name: Aakash Cook MD Consulted With: Hospitalist Call Returned at: 17:09 Auto Service Mechanic: Will see patient, Agrees with plan, Accepts admit Counseled Regarding: Diagnosis, Lab results, Need for admission Discharge & Departure Primary Impression: Altered mental status Altered mental status type: unspecified Qualified Code: R41.82 - Altered mental status, unspecified Additional Impressions: Diplopia Increased ammonia level Liver failure Liver failure chronicity: chronic Hepatic coma status: without hepatic coma Qualified Code: K72.10 - Chronic hepatic failure without coma Disposition: ADMITTED TO HOSPITAL Discharge Condition All VS Reviewed: Yes Condition: Improved Referrals: [facility] (PCP) Scribe Attestation Portions of this note were transcribed by Beverley Angeles. I, Dr. Schneider personally performed the history, physical exam and medical decision-making; I reviewed and confirmed the accuracy of the information in the transcribed note. Signed by : Tomi Hodge, 11/10/2016. copies to: [facility] Miguel Schneider DO Nov 10, 2016 14:56 BEVERLEY ANGELES Nov 10, 2016 15:24
[2016-11-10 14:58] LABS: BASOPHILS % (AUTO) 0.2 % (0-3); MONOCYTES % (AUTO) 10.9 % (4-12); Mean Corpuscular Hemoglobin 29.4 pg (27.0-35.0); NEUTROPHILS % (AUTO) 80.3 % (40-74); Platelet Count 90 bil/L (150-400)
[2016-11-10] MEDS ORDERED: 0.9% Sodium Chloride 1,000 ML IV ONE (15:10)
[2016-11-10 15:11] VITALS: BP 165/84; PULSE 84; RESP 18; O2SAT 94
[2016-11-10 15:19] LABS: INR 1.43 ratio
[2016-11-10 15:30] LABS: TROPONIN T < 0.010 ug/L (0.0-0.011)
[2016-11-10 15:35] LABS: Lipase 47 U/L (13-60); Magnesium 1.7 mg/dL (1.6-2.6)
--- NOTE | 2016-11-10 15:59 | DRSVH ---
PROCEDURE: CT BRAIN WITHOUT CONTRAST ([id number]) INDICATIONS: ams, double vision, slurred speech, liver failure TECHNIQUE: Noncontrast 4.5 mm thick angled axial sections acquired from the foramen magnum to the vertex, with c oronal reformats. COMPARISON: [facility], CT, CT BRAIN WO CON, 10/11/2016, 0:43. [facility], C T, CT BRAIN WO CON, 07/26/2016, 22:40. FINDINGS: Image quality: Excellent. CSF spaces: Basal cisterns are patent. No extra-axial fluid collections. Ventricles are normal in size and shape. Brain: No midline shift. No intracranial masses or hemorrhage. Ornelas-white matter interface is norm al. The mild patchy low-density within the periventricular and subcortical white matter is present, as before. Skull and face: Calvarium and visualized facial bones are intact, without suspicious lesions. Sinuses: Visualized sinuses and mastoids are clear. IMPRESSION: 1. No acute intracranial abnormality. 2. No change in mild white matter disease. Differential considerations in a patient of this age inclu de early small vessel ischemic disease, diabetes mellitus, vasculitides, and demyelinating disorders, such as multiple sclerosis. Dictated by: Cinda Guillen M.D. on 11/10/2016 at 15:56 Approved by: Cinda Guillen M.D. on 11/10/2016 at 15:57
[2016-11-10 17:19] VITALS: BP 144/76; PULSE 92; RESP 14; O2SAT 94
[2016-11-10] MEDS ORDERED: Alum-Mag Hydrox-Simeth 30 mL Suspension PO PRN (17:30)
[2016-11-10] MEDS ORDERED: Ondansetron 2 mg/mL 2 mL Inj IVPUSH PRN (17:30)
[2016-11-10] MEDS ORDERED: Polyethylene Glycol (PEG) 17 Gm Powder PO PRN (17:30)
--- NOTE | 2016-11-10 17:39 | PCM.HPMED ---
Subjective Date of Service Nov 10, 2016 Primary Provider: Admitting Physician: [facility] Physician: Admit Status: From the Emergency Department, Full Admit Chief Complaint: Altered mental status/1 day History of Present Illness: 50-year-old gentleman with a past medical history of hypertension, cirrhosis due to alcoholism and hepatitis C, and traumatic brain injury and recent admission for hepatic encephalopathy presents with altered mental status.His roomate advised him to come to emergency room due to lethargy/being sleepy. Patient states he feels he is more tired and sleepy today. He feels that he is having similar episode of high ammonia as last time. Denies medication noncompliance. He states he took rifaximin and lactulose as prescribed. He had 1 small BM 3 hrs ago . He admits to drinking 1 coors light beer at 11 today . Denies any recreational drug. Denies fever. Denies any new abdominal pain. Denies urinary complaints. ED course : Confused and lethargic,astrexis with nystagmus. CT brain unremarkable. Ammonia 110 , lower than his prior levels when he presents with AMS ,levels in200's and 300's up on my eval ,mild astrexis,no nystagmus,lethargic but oriented x3 .conversant and joking but goes right back to sleep Review of Systems: Comprehensive review of systems performed, pertinent positives and negatives included in history of present illness Allergies Coded Allergies: acetaminophen (Verified Adverse Reaction, Unknown, 10/11/16) D/T LIVER FAILURE Home Medications per chart Lactulose (Lactulose) 10 Gm/15 Ml Solution 10 GM PO TID Lactulose (Lactulose) 20 Gm/30 Ml Solution 20 GM PO QID Magnesium Oxide (Mag-Oxide) 400 Mg Tablet 400 MG PO DAILY Melatonin/Pyridoxine (Melatonin 3 mg Tablet) 1 Each Tablet 1 EACH PO HS Nadolol (Nadolol) 40 Mg Tablet 40 MG PO DAILY Rifaximin (Xifaxan) 550 Mg Tablet 550 MG PO BID PMH per cart and verified from patient 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 History of cocaine and heroin use, in remission. HIV was negative on 10/23/13. MRSA nasal carriage on 09/08/13. Reports: GERD Surgical History Left hip and right wrist fracture repairs Family History Father alive, early 60s, no medical issues Mother at late 30's due to lung cancer Social History Hx Alcohol Use: Yes (in past) Hx Substance Use: Yes (polysubstance) Hx Tobacco Use: Yes (quit 3 years ago) Smoking Status: Current Every Day Smoker Exam Vital Signs Vital Sign - Last Date Time Temp Pulse Resp B/P Pulse Ox O2 Delivery O2 Flow Rate FiO2 11/10/16 17:19 36.8 92 14 144/76 94 Nasal Cannula 2 Exam Gen. Lethargic,mild astrexis HEENT: Head is normocephalic atraumatic, Pupils equal and reactive, extraocular movements intact, Lungs clear to auscultation bilaterally Heart regular rate and rhythm without murmurs gallops or rubs Abdomen soft nontender without hepatosplenomegaly Extremities pulses are present dorsalis pedis posterior tibialis and radial. tSkin is warm and dry there are no rashes, Psych alert and oriented to person place and time Neuro cranial nerves II through XII are grossly intact. Lethargic Lymph: There is no lymphadenopathy appreciated in the cervical supra infraclavicular regions : no donahue Lab and Diagnostics Result Diagram: 11/10/16 1451 11/10/16 1451 X-Rays, CTs and MRIs PROCEDURE: CT BRAIN WITHOUT CONTRAST ([id number]) INDICATIONS: ams, double vision, slurred speech, liver failure IMPRESSION: 1. No acute intracranial abnormality. 2. No change in mild white matter disease. Differential considerations in a patient of this age include early small vessel ischemic disease, diabetes mellitus, vasculitides, and demyelinating disorders, such as multiple sclerosis. Dictated by: Cinda Guillen M.D. on 11/10/2016 at 15:56 Assessment & Plan 50-year-old gentleman with a past medical history of hypertension, cirrhosis due to alcoholism and hepatitis C, and traumatic brain injury and recent admission for hepatic encephalopathy presents with altered mental status # Altered mental status due to Hepatic encephalopathy,poa,acute -Patient's mentation improving per ED -Continue lactulose and rifaximin ,had 1 BM earlier, titrate to 3 BMs /day -UTox level requested,alcohol < 10 -initial ammonia 113 # Lactic acidosis -Probably due to dehydration due to poor oral intake -NS at 100ml/h ,will give albumin and check LA -lactate later -No evidence of infection clinically,UA pending #Cirrhosis, secondary to hepatitis C infectio, chronic - Recurrent hepatic encephalopathy -Continue with nadolol, propranolol recently discontinued #Chronic thrombocytopenia, Present on admission, active - Secondary to cirrhosis. Will hold subq heparin and use SCD's. #Chronic Normocytic Anemia, presumed stable - Monitor CBC Patient Status: Patient is admitted under observation status with expected length of stay less than 2 midnights due to severity of presenting symptoms and complexity of treatment plan. full code per patient Resuscitation Status: CPR: Attempt Resuscitation copies to: Critical access hospital Aakash Cook MD Nov 10, 2016 17:39
[2016-11-10] MEDS ORDERED: Albumin 25% 12.5 GM in IV Premix 1 EACH IV ONE (17:50)
[2016-11-10 18:15] VITALS: BP 167/81; PULSE 83; RESP 16; O2SAT 93
[2016-11-10] MEDS: 0.9% Sodium Chloride 1,000 ML IV SCH (18:19)
[2016-11-10 19:25] LABS: APPEARANCE,URINE CLEAR (CLEAR,HAZY); COLOR,URINE DARK YELLOW (YELLOW); OCCULT BLOOD,URINE SMALL (NEGATIVE); PH,URINE 5.5 (5.0-8.0)
[2016-11-10] MEDS: Lactulose 20 Gm/30 mL 30 mL Syrup PO SCH (22:10)
[2016-11-10 22:54] VITALS: BP 141/77; PULSE 84; RESP 16; O2SAT 95
[2016-11-11] VITALS (7 sets, daily range): BP systolic 124–147; BP diastolic 68–79; PULSE 67–101; RESP 16; O2SAT 93–97
[2016-11-11] MEDS: 0.9% Sodium Chloride 1,000 ML IV SCH (04:22)
[2016-11-11] MEDS: Lactulose 20 Gm/30 mL 30 mL Syrup PO SCH ×4 (06:14→21:10)
[2016-11-11] MEDS: Pantoprazole 40 mg ER24 Tablet PO SCH (06:14)
[2016-11-11 06:27] LABS: BASOPHILS % (AUTO) 0.4 % (0-3); EOSINOPHILS % (AUTO) 3.4 % (0-5); MONOCYTES % (AUTO) 7.9 % (4-12); Mean Corpuscular Hemoglobin 29.4 pg (27.0-35.0); Mean Corpuscular Volume 89.9 fL (81-100); NEUTROPHILS % (AUTO) 69.7 % (40-74); Platelet Count 59 bil/L (150-400)
[2016-11-11 07:01] LABS: Magnesium 1.6 mg/dL (1.6-2.6)
--- NOTE | 2016-11-11 13:22 | PCM.PNMED ---
Subjective Date of Service Nov 11, 2016 Subjective Mentation markedly improved. Hemoglobin drop noted on IV fluids. Platelets also dropped Exam Vital Signs Vital Sign - Last Date Time Temp Pulse Resp B/P Pulse Ox O2 Delivery O2 Flow Rate FiO2 11/11/16 09:21 36.8 89 16 147/79 94 Room Air 11/10/16 17:19 2 Intake and Output 11/10/16 11/10/16 11/11/16 Cumulative From/Thru 15:00 23:00 07:00 11/10/16 14:32 - 11/11/16 06:57 Intake Total 1000 ml 1783 ml 2783 ml Output Total 560 ml 560 ml Balance 1000 ml 1223 ml 2223 ml Intake Oral 600 ml 600 ml IV Total 1000 ml 1183 ml 2183 ml Output Urine Total 460 ml 460 ml Emesis 100 ml 100 ml Exam Gen. Lethargic,mild astrexis HEENT: Head is normocephalic atraumatic, Pupils equal and reactive, extraocular movements intact, Lungs clear to auscultation bilaterally Heart regular rate and rhythm without murmurs gallops or rubs Abdomen soft nontender without hepatosplenomegaly Extremities pulses are present dorsalis pedis posterior tibialis and radial. Skin is warm and dry there are no rashes, Psych alert and oriented to person place and time Neuro cranial nerves II through XII are grossly intact. Lethargic Lymph: There is no lymphadenopathy appreciated in the cervical supra infraclavicular regions : no donahue IVs and Medications Medications Reviewed: Medications were reviewed in detail Lab and Diagnostics Result Diagram: 11/11/1661211/11/16612 X-Rays, CTs and MRIs PROCEDURE: CT BRAIN WITHOUT CONTRAST ([id number]) INDICATIONS: ams, double vision, slurred speech, liver failure IMPRESSION: 1. No acute intracranial abnormality. 2. No change in mild white matter disease. Differential considerations in a patient of this age include early small vessel ischemic disease, diabetes mellitus, vasculitides, and demyelinating disorders, such as multiple sclerosis. Dictated by: Cinda Guillen M.D. on 11/10/2016 at 15:56 Assessment & Plan 50-year-old gentleman with a past medical history of hypertension, cirrhosis due to alcoholism and hepatitis C, and traumatic brain injury and recent admission for hepatic encephalopathy presents with altered mental status # Altered mental status due to Hepatic encephalopathy,poa,acute, improving -Patient's mentation improving -Continue lactulose and rifaximin , titrate to 3 BMs /day -alcohol < 10 -initial ammonia 113 # Lactic acidosis, improving -Probably due to dehydration due to poor oral intake -NS at 100ml/h, received albumin. Discontinued IV fluids -lactate improved -No evidence of infection clinically, urine culture negative #Cirrhosis, secondary to hepatitis C infection, chronic - Recurrent hepatic encephalopathy -Continue with nadolol, propranolol recently discontinued #Chronic thrombocytopenia, Present on admission, active - Secondary to cirrhosis. Will hold subq heparin and use SCD's. #Chronic Normocytic Anemia, presumed stable - Monitor CBC -Slightly worsened due to IV fluids. Patient Status: Patient is admitted under observation status with expected length of stay less than 2 midnights due to severity of presenting symptoms and complexity of treatment plan. full code per patient Possible discharge tomorrow if continues to improve Resuscitation Status: CPR: Attempt Resuscitation Aakash Cook MD Nov 11, 2016 13:22
[2016-11-12 05:43] VITALS: BP 123/71; PULSE 75; RESP 16; O2SAT 94
[2016-11-12] MEDS: Lactulose 20 Gm/30 mL 30 mL Syrup PO SCH ×3 (05:47→16:30)
[2016-11-12] MEDS: Pantoprazole 40 mg ER24 Tablet PO SCH (05:47)
[2016-11-12 08:14] LABS: BASOPHILS % (AUTO) 0.8 % (0-3); EOSINOPHILS % (AUTO) 6.4 % (0-5); Mean Corpuscular Hemoglobin 29.5 pg (27.0-35.0); Mean Corpuscular Volume 88.2 fL (81-100); NEUTROPHILS % (AUTO) 56.3 % (40-74); Platelet Count 55 bil/L (150-400)
--- NOTE | 2016-11-12 08:58 | PCM.DIMED ---
Discharge Instructions Date of Service Nov 12, 2016 Dates of Hospitalization Nov 10, 2016 at 17:31 Discharge Diagnosis Discharge Diagnosis # Altered mental status due to Hepatic encephalopathy,poa,acute, improving # Lactic acidosis, improving #Cirrhosis, secondary to hepatitis C infection, chronic #Chronic thrombocytopenia, Present on admission, active #Chronic Normocytic Anemia, presumed stable Diet Discharge Diet: Low fat, Low Sodium Activity Discharge Activity: Limited until seen by PCP Call your provider Call your provider for: Fever or Chills, Shortness of breath, Bleeding, Chest pain, Vomitting, Excessive diarrhea, Weakness (unilateral) Patient Instructions Patient Instructions You were hospitalized due to hepatic encephalopathy . Janey take lactulose and rifaximin as prescribed . Please follow up with PCP in 1-2 week . Follow-up Provider: [facility] Follow-up with PCP in: 2 weeks Aakash Cook MD Nov 12, 2016 08:58
[2016-11-12 09:10] LABS: Magnesium 1.5 mg/dL (1.6-2.6)
[2016-11-12 12:20] VITALS: BP 134/77; PULSE 67; RESP 18; O2SAT 96
--- NOTE | 2016-11-12 12:36 | PCM.DC.MED ---
Discharge Summary Date of Service Nov 12, 2016 Dates of Hospitalization Date of Hospital Admission Nov 10, 2016 at 17:31 Date of Discharge: Nov 12, 2016 Providers: Admitting Physician: Aakash Cook MD Primary Care Physician: [facility] Attending Physician: Aakash Cook MD Diagnosis at Time of Discharge Diagnosis at Time of Discharge # Altered mental status due to Hepatic encephalopathy,poa,acute, improving # Lactic acidosis, improving #Cirrhosis, secondary to hepatitis C infection, chronic #Chronic thrombocytopenia, Present on admission, active #Chronic Normocytic Anemia, presumed stable Procedures XRay, CTs & MRIs PROCEDURE: CT BRAIN WITHOUT CONTRAST ([id number]) INDICATIONS: ams, double vision, slurred speech, liver failure IMPRESSION: 1. No acute intracranial abnormality. 2. No change in mild white matter disease. Differential considerations in a patient of this age include early small vessel ischemic disease, diabetes mellitus, vasculitides, and demyelinating disorders, such as multiple sclerosis. Dictated by: Cinda Guillen M.D. 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 Patient states he feels he is more tired and sleepy today. He feels that he is having similar episode of high ammonia as last time. Denies medication noncompliance. He states he took rifaximin and lactulose as prescribed. He had 1 small BM 3 hrs ago . He admits to drinking 1 coors light beer at 11 today . Denies any recreational drug. Denies fever. Denies any new abdominal pain. Denies urinary complaints. ED course : Confused and lethargic,astrexis with nystagmus. CT brain unremarkable. 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 Discontinued IV fluids -lactate improved -No evidence of infection clinically, urine culture negative #Cirrhosis, secondary to hepatitis C infection, chronic - Recurrent hepatic encephalopathy -Continue with nadolol, propranolol recently discontinued #Chronic thrombocytopenia, Present on admission, active - Secondary to cirrhosis. #Chronic Normocytic Anemia, presumed stable -Slightly worsened due to IV fluids. Patient Status: Patient is admitted under observation status with expected length of stay less than 2 midnights due to severity of presenting symptoms and complexity of treatment plan. full code per patient discharge home .counselled the need to med compliance and alcohol abstinence . Exam Vital Signs (Last) Date Time Temp Pulse Resp B/P Pulse Ox O2 Delivery O2 Flow Rate FiO2 11/12/16 12:20 36.7 67 18 134/77 96 Room Air 11/10/16 17:19 2 Exam Gen. Lethargic,mild astrexis HEENT: Head is normocephalic atraumatic, Pupils equal and reactive, extraocular movements intact, Lungs clear to auscultation bilaterally Heart regular rate and rhythm without murmurs gallops or rubs Abdomen soft nontender without hepatosplenomegaly Extremities pulses are present dorsalis pedis posterior tibialis and radial. Skin is warm and dry there are no rashes, Psych alert and oriented to person place and time Neuro cranial nerves II through XII are grossly intact. Lethargic Lymph: There is no lymphadenopathy appreciated in the cervical supra infraclavicular regions : no [place]ue Test 11/10/16 14:51 11/10/16 18:00 11/10/16 19:01 11/11/16 06:13 Prothrombin Time 15.4sec (8.1-12.5) Prothromb Time International Ratio 1.43ratio Troponin T < 0.010ug/L (0.0-0.011) Lipase 47U/L (13-60) Alcohols < 10mg/dL (0-10) Urine Color Dark yellow (YELLOW) Urine Appearance Clear (CLEAR,HAZY) Urine pH 5.5 (5.0-8.0) Urine Specific [place] 1.030 (1.003-1.035) Urine Protein Tracemg/dL (NEG,TRACE) Urine Glucose (UA) Negativemg/dL (NEGATIVE) Urine Ketones Negativemg/dL (NEGATIVE) Urine Occult Blood Small (NEGATIVE) Urine Nitrite Positive (NEGATIVE) Urine Bilirubin Negative (NEGATIVE) Urine Urobilinogen 1.0mg/dL (NORMAL) Urine Leukocyte Esterase Negative (NEGATIVE) Urine RBC 0-2/hpf (0-2) Urine WBC 0-5/hpf (0-5) Urine Epithelial Cells Few/hpf (NONE-MOD) Urine Crystals None seen (NONE SEEN) Urine Bacteria Few/hpf (NONE-FEW) Urine Hyaline Casts None/lpf (NONE) Urine Granular Casts None seen (NONE SEEN) Urine Waxy Casts None seen (NONE SEEN) Urine Red Blood Cell Casts None seen (NONE SEEN) Urine White Blood Cell Casts None seen (NONE SEEN) Urine Mucus Present (None Seen) Urine Trichomonas None seen (NONE SEEN) Urine Yeast None (NONE SEEN) Urinalysis Comment None Urine Culture Reflexed Indicated Lactic Acid Level 2.2mmol/L (0.4-2.0) Ammonia 127ug/dL (18-53) Procalcitonin 0.88ng/mL (0.00-0.08) Test 11/12/16 08:00 White Blood Count 3.7th/mm3 (3.8-10.1) Red Blood Count 3.05mil/mm3 (4.40-5.80) Hemoglobin 9.0g/dL (13.8-17.2) Hematocrit 26.9% (41.0-50.0) Mean Corpuscular Volume 88.2fL (81-100) Mean Corpuscular Hemoglobin 29.5pg (27.0-35.0) Mean Corpuscular Hemoglobin Concent 33.5% (32.0-37.0) Red Cell Distribution Width 19.4% (12.3-15.4) Platelet Count 55bil/L (150-400) Neutrophils (%) (Auto) 56.3% (40-74) Lymphocytes (%) (Auto) 24.4% (14-46) Monocytes (%) (Auto) 11.0% (4-12) Eosinophils (%) (Auto) 6.4% (0-5) Basophils (%) (Auto) 0.8% (0-3) Sodium Level 141mEq/L (134-144) Potassium Level 3.6mEq/L (3.5-5.2) Chloride Level 110mEq/L (97-108) Carbon Dioxide Level 21mmol/L (18-29) Blood Urea Nitrogen 15mg/dL (6-24) Creatinine 0.49mg/dL (0.76-1.27) Estimat Glomerular Filtration Rate 192mL/min (>59) Glucose Level 94mg/dL (60-99) Calcium Level 7.2mg/dL (8.5-10.1) Magnesium Level 1.5mg/dL (1.6-2.6) Total Bilirubin 2.2mg/dL (0.0-1.2) Aspartate Amino Transf (AST/SGOT) 50U/L (0-50) Alanine Aminotransferase (ALT/SGPT) 21U/L (0-44) Alkaline Phosphatase 78U/L (25-150) Total Protein 4.4g/dL (6.4-8.4) Albumin 2.2g/dL (3.4-5.0) Discharge Medications Discharge Medications Lactulose (Lactulose) 20 Gm/30 Ml Solution 20 GM PO QID Prescribed by: KATE GOMES Nadolol (Nadolol) 40 Mg Tablet 40 MG PO DAILY Prescribed by: SANTO SMALL DO Omeprazole (Omeprazole) 20 Mg Capsule.dr 20 MG PO DAILY Prescribed by: SANTO SMALL DO Rifaximin (Xifaxan) 550 Mg Tablet 550 MG PO BID Prescribed by: NEETA MIRZA MD Followup Plan Disposition: home Discharge Diet: Low fat, Low Sodium Discharge Activity: Limited until seen by PCP Patient Instructions You were hospitalized due to hepatic encephalopathy . Hatch take lactulose and rifaximin as prescribed . Please follow up with PCP in 1-2 week . Follow-up Provider: [facility] Follow-up with PCP in: 2 weeks copies to: [facility] Aakash Cook MD Nov 12, 2016 12:36
== END 2016-11-12 17:08 | disposition home or self-care (01) ==
LOC: SED 14:23 → MPC 17:31 → INTOOBSV 17:31 → MPC 17:50
PROVIDERS: ADMIT Internal Medicine; ATTEND Internal Medicine
DX: K72.90 Hepatic failure, unspecified without coma (principal); R41.82 Altered mental status, unspecified; E78.2 Mixed hyperlipidemia; I10 Essential (primary) hypertension; K70.30 Alcoholic cirrhosis of liver without ascites; B19.20 Unspecified viral hepatitis C without hepatic coma; K21.9 Gastro-esophageal reflux disease without esophagitis; D69.6 Thrombocytopenia, unspecified; D64.9 Anemia, unspecified; F17.210 Nicotine dependence, cigarettes, uncomplicated; Z86.14 Personal history of Methicillin resistant Staphylococcus aureus infection; Z79.899 Other long term (current) drug therapy
CPT/HCPCS: 36415; 70450; 80053; 81000; 82140; 83605; 83690; 83735; 84145; 84484; 85025; 85610; 87086; 87088; 93005; 96365; 99285; G0378; G0480; J7030; P9047